=== PATIENT | male | born 1965 | race Caucasian/White ===

== ENCOUNTER 2016-07-08 11:14 | Emergency (ER) | payer BC ==
[2016-07-08] MEDS ORDERED: SODIUM CHLORIDE 0.9% 1,000 ML IV STA ×2 (14:09)
[2016-07-08] MEDS ORDERED: MECLIZINE 12.5 MG TAB PO STA (14:17)
--- NOTE | 2016-07-08 14:48 | ED ---
General Adult HPI - General Chief complaint: Dizziness Stated complaint: Dizzy,back,neck pain Time Seen by Provider: 07/08/16 14:02 Source: patient, RN notes reviewed Mode of arrival: wheelchair Limitations: no limitations - History of Present Illness Initial comments: Patient 50-year-old male who presents emergency room today with a chief complaint of feeling dizzy and lightheaded. Patient does describe the dizziness as room spinning. Patient does admit that he had similar symptoms several years ago. Patient states she does not take her medications at home. States symptoms started this morning when he was at work. He states it started approximately 8 AM. 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 States that when he sits down symptoms do improve when he gets up symptoms increase. Patient denies any recent fever, chills, shortness of breath, chest pain, back pain, abdominal pain , nausea or vomiting, numbness or tingling, dysuria or hematuria, constipation or diarrhea, headaches or visual changes, or any other complaints. - Related Data Home Medications Medication Instructions Recorded Confirmed No Known Home Medications [No 07/08/16 07/08/16 Known Home Medications] Allergies Allergy/AdvReac Type Severity Reaction Status Date / Time Penicillins Allergy Rash/Hives Verified 07/08/16 13:01 Review of Systems ROS Statement: Those systems with pertinent positive or pertinent negative responses have been documented in the HPI. ROS Other: All systems not noted in ROS Statement are negative. Past Medical History Past Medical History: No Reported History History of Any Multi-Drug Resistant Organisms: None Reported Past Surgical History: No Surgical Hx Reported Past Psychological History: No Psychological Hx Reported Smoking Status: Current every day smoker Past Alcohol Use History: None Reported Past Drug Use History: None Reported General Exam - General Exam Comments Initial Comments: General: The patient is awake and alert, in no distress, and does not appear acutely ill. Eye: Pupils are equal, round and reactive to light, extra-ocular movements are intact. No nystagmus. There is normal conjunctiva bilaterally. No signs of icterus. Ears, nose, mouth and throat: There are moist mucous membranes and no oral lesions. Neck: The neck is supple, there is no tenderness or JVD. Cardiovascular: There is a regular rate and rhythm. No murmur, rub or gallop is appreciated. Respiratory: Lungs are clear to auscultation, respirations are non-labored, breath sounds are equal. No wheezes, stridor, rales, or rhonchi. Gastrointestinal: Soft, non-distended, non-tender abdomen without masses or organomegaly noted. There is no rebound or guarding present. No CVA tenderness. Bowel sounds are unremarkable. Musculoskeletal: Normal ROM, no tenderness. Strength 5/5. Sensation intact. Pulses equal bilaterally 2+. Neurological: A&O x 3. CN II-XII intact, There are no obvious motor or sensory deficits. Coordination appears grossly intact. Speech is normal. Skin: Skin is warm and dry and no rashes or lesions are noted. Psychiatric: Cooperative, appropriate mood & affect, normal judgment. Limitations: no limitations Course Vital Signs 07/08/16 11:37 Temperature 97.8 F Pulse Rate 64 Respiratory 20 Rate Blood Pressure 134/85 O2 Sat by Pulse 96 Oximetry EKG Findings - EKG Comments: EKG Findings:: EKG performed at 1437: Soft. Cardiovascular tachycardic 5 beats per minute. MN interval 138. QRS 92. QT/QTc 422/403. no acute ST changes. Medical Decision Making - Medical Decision Making Patient reexamined at this time shows no signs of distress. Patient does admit that his feeling better here in the emergency room. Patient's labs been reviewed and are unremarkable. EKG shows normal sinus rhythm. Patient feeling better after fluids seen here in the emergency room. Does admit to an episode of dizziness or lightheadedness. Describes it as room spinning. Patient states symptoms have resolved at this time. Patient will be discharged home with prescription for meclizine to continue. Otherwise follow-up family doctor over the next 2 days. Advised return to emergency room if any symptoms increase worsen or for any other concerns. - Lab Data Result diagrams: 07/08/16 14:15 07/08/16 14:15 Lab Results 07/08/16 07/08/16 07/08/16 Range/Units 14:15 14:15 14:15 WBC 8.9 (3.8-10.6) k/uL RBC 5.26 (4.30-5.90) m/uL Hgb 16.3 (13.0-17.5) gm/dL Hct 48.7 (39.0-53.0) % MCV 92.6 (80.0-100.0) fL MCH 30.9 (25.0-35.0) pg MCHC 33.4 (31.0-37.0) g/dL RDW 12.9 (11.5-15.5) % Plt Count 219 (150-450) k/uL Neutrophils % 83 % Lymphocytes % 11 % Monocytes % 5 % Eosinophils % 0 % Basophils % 1 % Neutrophils # 7.4 (1.3-7.7) k/uL Lymphocytes # 1.0 (1.0-4.8) k/uL Monocytes # 0.4 (0-1.0) k/uL Eosinophils # 0.0 (0-0.7) k/uL Basophils # 0.1 (0-0.2) k/uL PT (9.0-12.0) sec INR (<1.1) APTT (22.0-30.0) sec Sodium 142 (137-145) mmol/L Potassium 4.7 (3.5-5.1) mmol/L Chloride 104 (98-107) mmol/L Carbon Dioxide 27 (22-30) mmol/L Anion Gap 11 mmol/L BUN 15 (9-20) mg/dL Creatinine 0.71 (0.66-1.25) mg/dL Est GFR (MDRD) Af Amer >60 (>60 ml/min/1.73 sqM) Est GFR (MDRD) Non-Af >60 (>60 ml/min/1.73 sqM) Glucose 110 H (74-99) mg/dL Calcium 9.9 (8.4-10.2) mg/dL Magnesium 2.4 H (1.6-2.3) mg/dL Total Bilirubin 0.8 (0.2-1.3) mg/dL AST 19 (17-59) U/L ALT 26 (21-72) U/L Alkaline Phosphatase 82 (38-126) U/L Total Creatine Kinase 118 (55-170) U/L CK-MB (CK-2) 1.7 (0.0-2.4) ng/mL CK-MB (CK-2) Rel Index 1.4 Troponin I <0.012 (0.000-0.034) ng/mL Total Protein 7.4 (6.3-8.2) g/dL Albumin 4.5 (3.5-5.0) g/dL 07/08/16 Range/Units 14:15 WBC (3.8-10.6) k/uL RBC (4.30-5.90) m/uL Hgb (13.0-17.5) gm/dL Hct (39.0-53.0) % MCV (80.0-100.0) fL MCH (25.0-35.0) pg MCHC (31.0-37.0) g/dL RDW (11.5-15.5) % Plt Count (150-450) k/uL Neutrophils % % Lymphocytes % % Monocytes % % Eosinophils % % Basophils % % Neutrophils # (1.3-7.7) k/uL Lymphocytes # (1.0-4.8) k/uL Monocytes # (0-1.0) k/uL Eosinophils # (0-0.7) k/uL Basophils # (0-0.2) k/uL PT 10.5 (9.0-12.0) sec INR 1.0 (<1.1) APTT 23.7 (22.0-30.0) sec Sodium (137-145) mmol/L Potassium (3.5-5.1) mmol/L Chloride (98-107) mmol/L Carbon Dioxide (22-30) mmol/L Anion Gap mmol/L BUN (9-20) mg/dL Creatinine (0.66-1.25) mg/dL Est GFR (MDRD) Af Amer (>60 ml/min/1.73 sqM) Est GFR (MDRD) Non-Af (>60 ml/min/1.73 sqM) Glucose (74-99) mg/dL Calcium (8.4-10.2) mg/dL Magnesium (1.6-2.3) mg/dL Total Bilirubin (0.2-1.3) mg/dL AST (17-59) U/L ALT (21-72) U/L Alkaline Phosphatase (38-126) U/L Total Creatine Kinase (55-170) U/L CK-MB (CK-2) (0.0-2.4) ng/mL CK-MB (CK-2) Rel Index Troponin I (0.000-0.034) ng/mL Total Protein (6.3-8.2) g/dL Albumin (3.5-5.0) g/dL Disposition Clinical Impression: Dizziness Disposition: HOME SELF-CARE Condition: Good Instructions: Vertigo (ED) Additional Instructions: Please use medication as discussed. Please follow-up with family doctor in the next 2 days. Please return to emergency room if the symptoms increase or worsen or for any other concerns. Time of Disposition: 15:45
[2016-07-08 14:49] LABS: Basophils # (A) 0.1 k/uL (0-0.2); Basophils % (A) 1 %; CH 32.3; Eosinophils % (A) 0 %; HCT 48.7 % (39.0-53.0); HDW 2.49; HGB 16.3 gm/dL (13.0-17.5); Luc # (Auto) 0.08; Luc % (Auto) 1; Lymphocytes % (A) 11 %; MCH 30.9 pg (25.0-35.0); MCHC 33.4 g/dL (31.0-37.0); MCV 92.6 fL (80.0-100.0); Mean Platelet Volume 6.5; Monocytes # (A) 0.4 k/uL (0-1.0); Monocytes % (A) 5 %; Neutrophils # (A) 7.4 k/uL (1.3-7.7); Neutrophils % (A) 83 %; RBC 5.26 m/uL (4.30-5.90); RDW 12.9 % (11.5-15.5); WBC 8.9 k/uL (3.8-10.6); WBC (Perox) 8.49
[2016-07-08 14:56] LABS: ALT 26 U/L (21-72); AST 19 U/L (17-59); Alkaline Phosphatase 82 U/L (38-126); Anion Gap 11 mmol/L; Blood Urea Nitrogen 15 mg/dL (9-20); Calcium 9.9 mg/dL (8.4-10.2); Carbon Dioxide 27 mmol/L (22-30); Chloride 104 mmol/L (98-107); Glucose 110 mg/dL (74-99); Magnesium 2.4 mg/dL (1.6-2.3); Non-African American GFR(MDRD) >60 (>60 ml/min/1.73 sqM); Partial Thromboplastin Time 23.7 sec (22.0-30.0); Potassium 4.7 mmol/L (3.5-5.1); Prothrombin Time 10.5 sec (9.0-12.0); Sodium 142 mmol/L (137-145); Total Bilirubin 0.8 mg/dL (0.2-1.3); Total Protein 7.4 g/dL (6.3-8.2)
--- NOTE | 2016-07-08 15:00 | XR ---
EXAMINATION TYPE: XR chest 2V DATE OF EXAM: 07/08/2016 2:55 PM COMPARISON: Chest x-ray September 07, 2014. HISTORY: Chest pain per order. Lightheadedness and dizziness per patient. TECHNIQUE: Frontal and lateral views of the chest are obtained. FINDINGS: There is chronic parenchymal change with left basilar lateral linear atelectasis. There i s no suspicious focal airspace opacity, pleural effusion, or pneumothorax seen The cardiac silhouette size remains within normal limits. The osseous structures are intact. IMPRESSION: Chronic parenchymal change with new left basilar linear atelectasis.
[2016-07-08 15:11] LABS: Creatine Kinase 118 U/L (55-170)
[2016-07-08 15:25] LABS: Creatine Kinase MB 1.7 ng/mL (0.0-2.4); Troponin I <0.012 ng/mL (0.000-0.034)
[2016-07-08 16:01] VITALS: BP 150/92; PULSE 53; RESP 18; TEMP 97.7
== END 2016-07-08 16:00 | disposition home or self-care (01) ==
LOC: EC 11:14 → MERGE 11:14 → EC 16:00
DX: R42 Dizziness and giddiness (principal); R07.9 Chest pain, unspecified; F17.200 Nicotine dependence, unspecified, uncomplicated; Z88.0 Allergy status to penicillin
CPT/HCPCS: 36415; 71020; 80053; 82550; 82553; 83735; 84484; 85025; 85610; 85730; 93005; 96360; 99284

== ENCOUNTER 2018-09-19 19:42 | Emergency (ER) | payer BC, MEDICAID ==
[2018-09-19 20:02] VITALS: BP 153/94; PULSE 68; RESP 18; TEMP 98.2
[2018-09-19 20:33] LABS: Appearance,Urine Clear (Clear); Bilirubin,Urine Negative (Negative); Blood,Urine Negative (Negative); Color,Urine Light Yellow; Glucose,Urine (UA) Negative (Negative); Ketones,Urine Negative (Negative); Leukocyte Esterase,Urine Negative (Negative); Nitrite,Urine Negative (Negative); Protein,Urine Negative (Negative); Specific Gravity,Urine 1.018 (1.001-1.035); Urobilinogen,Urine <2.0 mg/dL (<2.0)
[2018-09-19] MEDS ORDERED: CYCLOBENZAPRINE 10 MG TAB PO STA (21:29)
[2018-09-19] MEDS ORDERED: HYDROcodone/APAP 5-325MG 1 EACH TAB PO STA (21:29)
--- NOTE | 2018-09-19 21:33 | ED ---
Back Pain HPI - General Chief Complaint: Back Pain/Injury Stated Complaint: Lower Back/Left Side Pain Time Seen by Provider: 09/19/18 21:16 Source: patient, RN notes reviewed Limitations: no limitations - History of Present Illness Initial Comments: 52 -year-old male presents emergency Department with chief complaint of left low back pain. Patient states that he hasn't discomfort to work on Wednesday states it did get better and woke up feeling by this morning states that he went to work and states he had worsening symptoms and that side. Patient states that he feels so states that it feels difficult to move around. It is better at rest when he lays with his knees bent up. He denies any bowel bladder incontinence or retention no dysuria no hematuria. Denies any diarrhea constipation. Patient has had some issues with his back in the past but no prior surgeries. Patient did take a tramadol with no relief of his symptoms. - Related Data Home Medications Medication Instructions Recorded Confirmed Diclofenac Sodium [Voltaren] 50 mg PO BID-W/MEALS 09/19/18 09/19/18 Previous Rx's Medication Instructions Recorded Cyclobenzaprine [Flexeril] 10 mg PO TID PRN #15 tab 09/19/18 Ibuprofen [Motrin] 600 mg PO Q8HR PRN #30 tab 09/19/18 Allergies Allergy/AdvReac Type Severity Reaction Status Date / Time Penicillins Allergy Rash/Hives Verified 09/19/18 20:50 Review of Systems ROS Statement: Those systems with pertinent positive or pertinent negative responses have been documented in the HPI. ROS Other: All systems not noted in ROS Statement are negative. Past Medical History Past Medical History: No Reported History History of Any Multi-Drug Resistant Organisms: None Reported Past Surgical History: No Surgical Hx Reported Past Psychological History: No Psychological Hx Reported Smoking Status: Former smoker Past Alcohol Use History: Occasional Past Drug Use History: None Reported General Exam Limitations: no limitations General appearance: alert, in no apparent distress Head exam: Present: atraumatic, normocephalic, normal inspection Eye exam: Present: normal appearance, PERRL, EOMI. Absent: scleral icterus, conjunctival injection, periorbital swelling Neck exam: Present: normal inspection, full ROM. Absent: tenderness, meningismus, lymphadenopathy Respiratory exam: Present: normal lung sounds bilaterally. Absent: respiratory distress, wheezes, rales, rhonchi, stridor Cardiovascular Exam: Present: regular rate, normal rhythm, normal heart sounds. Absent: systolic murmur, diastolic murmur, rubs, gallop, clicks GI/Abdominal exam: Present: soft, normal bowel sounds. Absent: distended, tenderness, guarding, rebound, rigid Extremities exam: Present: other (Pain with right straight leg raise, lower extremity neurovascular intact equal strength equal color equal warmth) Back exam: Present: full ROM (Mild discomfort), tenderness (Moderate left lower), paraspinal tenderness. Absent: CVA tenderness (R), CVA tenderness (L), vertebral tenderness Neurological exam: Present: alert, oriented X3, CN II-XII intact, reflexes normal. Absent: motor sensory deficit Skin exam: Present: warm, dry, intact, normal color. Absent: rash Course Vital Signs 09/19/18 19:59 Temperature 98.2 F Pulse Rate 68 Respiratory 18 Rate Blood Pressure 153/94 O2 Sat by Pulse 96 Oximetry Medical Decision Making - Medical Decision Making 52-year-old male present emergency from chief complaint of low back pain. X- rays obtained negative urinalysis unremarkable. Patient is a lumbar strain. Patient will be discharged with anti-inflammatories, muscle relaxers. Patient will follow ECP discuss physical therapy and return parameters were discussed - Lab Data Lab Results 09/19/18 Range/Units 20:08 Urine Color Light Yellow Urine Appearance Clear (Clear) Urine pH 7.0 (5.0-8.0) Ur Specific [place] 1.018 (1.001-1.035) Urine Protein Negative (Negative) Urine Glucose (UA) Negative (Negative) Urine Ketones Negative (Negative) Urine Blood Negative (Negative) Urine Nitrite Negative (Negative) Urine Bilirubin Negative (Negative) Urine Urobilinogen <2.0 (<2.0) mg/dL Ur Leukocyte Esterase Negative (Negative) Disposition Clinical Impression: Strain of lumbar region Disposition: HOME SELF-CARE Condition: Stable Instructions (If sedation given, give patient instructions): Acute Low Back Pain (ED) Additional Instructions: Please return to the Emergency Department if symptoms worsen or any other concerns. Prescriptions: Cyclobenzaprine [Flexeril] 10 mg PO TID PRN #15 tab PRN Reason: Muscle Spasm Ibuprofen [Motrin] 600 mg PO Q8HR PRN #30 tab PRN Reason: Pain Is patient prescribed a controlled substance at d/c from ED?: No Referrals: Sofia Casey DO [Primary Care Provider] - 1-2 days Time of Disposition: 22:36
--- NOTE | 2018-09-19 22:25 | XR ---
PROCEDURE: XR lumbosacral spine - 5V DATE AND TIME: 09/19/2018 9:51 PM CLINICAL INDICATION: PHH; Pain TECHNIQUE: Department protocol COMPARISON: None FINDINGS: There is no fracture or malalignment. Mild and moderate multilevel spondylosis changes are noted, predominantly involving the facet joints. The soft tissues are unremarkable. IMPRESSION: NO ACUTE PROCESS.
== END 2018-09-19 22:48 | disposition home or self-care (01) ==
LOC: EC 19:42
DX: S39.012A Strain of muscle, fascia and tendon of lower back, initial encounter (principal); Z87.891 Personal history of nicotine dependence; Z88.0 Allergy status to penicillin
CPT/HCPCS: 72110; 81003; 99283

== ENCOUNTER → 2018-09-24 | Outpatient (CLI) | payer MEDICAID ==
--- NOTE | 2018-09-24 09:33 | MR ---
MR lumbar spine wo con LBP, LLE radic, occasionally RLE radic x 3 yrs Multiplanar, multiecho imaging of the lumbar spine was obtained without contrast on a 3 Trang magnet. REFERENCE:None. FINDINGS: Paraspinal soft tissues are normal. Vertebral body height and alignment are maintained. Cord signal is maintained. The conus ends normall y at the level of the inferior endplate of L1. At T12-L1, the intervertebral foramina are widely maintained. There is no significant compressive dis copathy. There is mild capsulitis in the right facet. At L1-2, the intervertebral foramina are widely maintained. There is no significant compressive disco shakira. There is mild hypertrophic change and capsulitis within the facets. At L2-3, the intervertebral foramina are well maintained. There is a broad-based disc displacement. T his hypertrophic change and capsulitis within the facets. There is mild trefoiling of the thecal sac. At L3-4, there is a left paracentral disc protrusion causing some narrowing of the left intervertebra l foramen. This is deforming the thecal sac and impinging upon the traversing L4 nerve root on the le ft. There is mild hypertrophic change and capsulitis within the facets. At L4-5, there is disc space loss and disc desiccation. Intervertebral foramina appear mildly narrowe d bilaterally. There is a broad-based disc displacement. This hypertrophic changes within the facets. There is mild to moderate central canal stenosis. At L5-S1,the intervertebral foramina are well maintained. There is a central disc protrusion without definite neural compression. There is hypertrophic change and capsulitis within the facets. IMPRESSION: 1. DIFFUSE DEGENERATIVE DISC DISEASE AND FACET ARTHROPATHY. 2. LEFT PARACENTRAL DISC PROTRUSION, L3-4 PARTIALLY NARROWING THE LEFT INTERVERTEBRAL FORAMINA AT THI S LEVEL. 3. CENTRAL DISC PROTRUSION, L5-S1 WITHOUT DEFINITE NEURAL COMPRESSION.
== END | disposition home or self-care (01) ==
LOC: RADMRIMAIN 08:11
PROVIDERS: ATTEND Family Medicine
DX: M99.73 Connective tissue and disc stenosis of intervertebral foramina of lumbar region (principal); M51.27 Other intervertebral disc displacement, lumbosacral region; M51.36 Other intervertebral disc degeneration, lumbar region; M46.96 Unspecified inflammatory spondylopathy, lumbar region
CPT/HCPCS: 72148

== ENCOUNTER 2019-02-06 08:50 | Day surgery (SDC) | payer MEDICAID ==
[2019-02-06 09:05] VITALS: TEMP 97
[2019-02-06] MEDS ORDERED: LACTATED RINGERS 1,000 ML IV ONE (09:08)
[2019-02-06] MEDS ORDERED: PROPOFOL 10 MG/ML 20 ML VIAL IV ONE (10:02)
--- NOTE | 2019-02-06 10:32 | P.PCN ---
Date of Procedure: 02/06/19 Description of Procedure: BRIEF HISTORY: Patient is a 53-year-old pleasant male scheduled for an elective colonoscopy as a part of screening for malignant neoplasm of the colon. No prior colonoscopies reported. No family history of colon cancer. No change in bowel habits, abdominal pain or blood per rectum reported. PROCEDURE PERFORMED: Colonoscopy with polypectomy. PREOPERATIVE DIAGNOSIS: Screening for malignant neoplasm colon, no prior colonoscopies reported. ESTIMATED BLOOD LOSS: Minimal. IV sedation per Anesthesia. PROCEDURE: After informed consent was obtained, the patient, was brought into the endoscopy unit. IV sedation was administered by Anesthesia under continuous monitoring. Digital rectal examination was normal. Initially the Olympus CF-190 flexible video colonoscope was then inserted in the rectum, gradually advanced into the cecum without any difficulty. The terminal ileum was intubated and appeared normal. Careful examination was performed as the scope was gradually being withdrawn. Ileocecal valve and the appendiceal orifice were visualized and appe ared normal. Prep was excellent. Mucosa of the cecum, ascending colon, transverse colon, descending colon, sigmoid colon, and rectum appeared normal. Diminutive 3 mm sigmoid polyp removed with cold forcep polypectomy. 2 diminutive rectal polyps measuring 1 mm and 2 mm in size removed with cold forcep polypectomy. Retroflexion was performed in the rectum and no lesions were seen. The patient tolerated the procedure well. IMPRESSION: 3 diminutive polyps 2 removed from the rectum and one from the sigmoid colon with cold forcep polypectomy. Otherwise normal appearing colon and cecum, with normal-appearing terminal ileum. RECOMMENDATIONS: Findings of this examination were discussed with the patient in his mother and [id number]. Okay to resume diet and medications. Anticipate repeat colonoscopy in 5 years pending pathology from polypectomies.
[2019-02-06 10:33] VITALS: RESP 16
[2019-02-06 10:53] VITALS: BP 129/81; PULSE 60
== END 2019-02-06 11:02 | disposition home or self-care (01) ==
LOC: ORWHC2ENDO 08:50
PROVIDERS: ATTEND Internal Medicine
DX: Z12.11 Encounter for screening for malignant neoplasm of colon (principal); D12.5 Benign neoplasm of sigmoid colon; K62.1 Rectal polyp; K08.89 Other specified disorders of teeth and supporting structures; Z87.891 Personal history of nicotine dependence; Z88.0 Allergy status to penicillin; Z79.1 Long term (current) use of non-steroidal anti-inflammatories (NSAID); Z79.899 Other long term (current) drug therapy
CPT/HCPCS: 88305; 45380; J2704

== ENCOUNTER → 2022-10-23 | Outpatient (CLI) | payer MEDICAID ==
--- NOTE | 2022-10-23 09:13 | US ---
EXAMINATION TYPE: US carotid duplex BILAT DATE OF EXAM: 10/23/2022 COMPARISON: NONE CLINICAL INDICATION: Male, 56 years old with history of R42 DIZZINESS AND GIDDINESS; dizziness TECHNIQUE: Carotid duplex ultrasound examination. Indirect Doppler criteria was utilized. 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 Criteria for Assigning % of Stenosis / Diameter reduction (Estimation based on the indirect measurements of the internal carotid artery velocities (ICA PSV). 1. Normal (no stenosis)=ICA PSV < 125 cm/s: ratio < 2.0: ICA EDV<40 cm/s. 2. Less than 50% stenosis=ICA PSV < 125 cm/s: ratio < 2.0: ICA EDV<40 cm/s. 3. 50 to 69% stenosis=ICA PSV of 125 to 230 cm/s: ration 2.0 ? 4.0: ICA EDV 40-100 cm/s. 4. Greater than 70% stenosis to near occlusion= ICA PSV > 230 cm/s: ratio > 4.0: ICA EDV > 100 cm/s. 5. Near occlusion= ICA PSV velocities may be low or undetectable: variable ratio and ICA EDV. 6. Total occlusion=unable to detect flow.
--- NOTE | 2022-10-23 09:31 | CA ---
Transthoracic Echo Report Name: Yanick Rojas Age: 56 Gender: M : 1965 Exam Date: 10/23/2022 08:05 Exam Location: [facility] Ht (in): 67 Wt (lb): 180 Ordering Physician: Sofia Casey DO Attending/Referring Phys: Cindy Gillis [facility] Lever Tender Madison Pollock RDCS Procedure CPT: Indications: R42 Cardiac Hx: Technical Quality: Good Contrast 1: Total Dose (mL): Contrast 2: Total Dose (mL): MEASUREMENTS (Male / Female) Normal Values 2D ECHO LV Diastolic Diameter PLAX 4.5 cm 4.2 - 5.9 / 3.9 - 5.3 cm LV Systolic Diameter PLAX 3.1 cm IVS Diastolic Thickness 1.0 cm 0.6 - 1.0 / 0.6 - 0.9 cm LVPW Diastolic Thickness 1.0 cm 0.6 - 1.0 / 0.6 - 0.9 cm LV Relative Wall Thickness 0.4 RV Internal Dim ED PLAX 3.3 cm LA Systolic Diameter LX 4.5 cm 3.0 - 4.0 / 2.7 - 3.8 cm LV Diastolic Volume MOD 4C 110.4 cm??? LV Systolic Volume MOD 4C 43.9 cm??? LV Ejection Fraction MOD 4C 60.2 % LV Cardiac Index MOD 4C 1876.9 cm???/min???m??? LV Diastolic Length 4C 8.4 cm LV Systolic Length 4C 6.8 cm LV Diastolic Volume MOD 2C 99.6 cm??? LV Systolic Volume MOD 2C 38.5 cm??? LV Ejection Fraction MOD 2C 61.4 % LV Cardiac Index MOD 2C 1724.7 cm???/min???m??? LV Diastolic Length 2C 8.2 cm LV Systolic Length 2C 6.6 cm M-MODE Aortic Root Diameter MM 2.9 cm AV Cusp Separation MM 2.1 cm DOPPLER AV Peak Velocity 147.4 cm/s AV Peak Gradient 8.7 mmHg Mitral E Point Velocity 61.3 cm/s Mitral A Point Velocity 72.6 cm/s Mitral E to A Ratio 0.8 MV Deceleration Time 281.9 ms MV E' Velocity 7.5 cm/s Mitral E to MV E' Ratio 8.2 TR Peak Velocity 220.3 cm/s TR Peak Gradient 19.4 mmHg Right Ventricular Systolic Press 29.4 mmHg FINDINGS Left Ventricle Left ventricular ejection fraction is estimated at 60-65 %. Left ventricular cavity size normal. Left ventricular wall thickness normal. Normal left ventricular wall motion. Right Ventricle Mild right ventricular dilatation. Right ventricular systolic pressure within normal limits. Right ventricular systolic pressure estimated at 29 mm hg. Right Atrium Normal right atrial size. Left Atrium Normal left atrial size. Mitral Valve Structurally normal mitral valve. Mild mitral regurgitation. Aortic Valve Trileaflet aortic valve. No aortic valve stenosis or regurgitation. Tricuspid Valve Structurally normal tricuspid valve. Mild tricuspid regurgitation. Pulmonic Valve Structurally normal pulmonic valve. Trace pulmonic regurgitation. Pericardium Normal pericardium. No pericardial effusion. Aorta Normal size aortic root and proximal ascending aorta. CONCLUSIONS 1. Normal left ventricular size and systolic function. 2. Mild mitral and tricuspid regurgitation Previewed by: Dr. Haider Reilly MD (Electronically Signed) Final Date: 23 October 2022 09:30
== END | disposition home or self-care (01) ==
LOC: RADECHMAIN 07:43
PROVIDERS: ATTEND Family Medicine
DX: I08.1 Rheumatic disorders of both mitral and tricuspid valves (principal); R42 Dizziness and giddiness
CPT/HCPCS: 93306; 93880

== ENCOUNTER 2023-12-26 11:32 | Observation (INO) | payer MEDICAID ==
[2023-12-26] MEDS: NITROGLYCERIN SL TABS 0.4 MG TAB SUBLINGUAL STA (11:56)
[2023-12-26] MEDS: SODIUM CHLORIDE 0.9% 1,000 ML IV STA ×2 (11:57→13:22)
[2023-12-26] MEDS: PANTOPRAZOLE 40 MG/10 ML VIAL IVP STA (11:59)
[2023-12-26] MEDS: ONDANSETRON 4 MG/2 ML VIAL IVP STA (11:59)
[2023-12-26 12:04] LABS: Basophils % (A) 0 %; Eosinophils % (A) 0 %; HCT 45.8 % (39.0-53.0); HGB 15.3 gm/dL (13.0-17.5); Lymphocytes # (A) 0.9 k/uL (1.0-4.8); Lymphocytes % (A) 8 %; MCH 31.4 pg (25.0-35.0); MCHC 33.4 g/dL (31.0-37.0); MCV 94.2 fL (80.0-100.0); Mean Platelet Volume 7.2; Monocytes # (A) 0.3 k/uL (0-1.0); Monocytes % (A) 3 %; Neutrophils % (A) 89 %; Platelet Count 196 k/uL (150-450); RBC 4.86 m/uL (4.30-5.90); RDW 12.1 % (11.5-15.5); WBC 11.3 k/uL (3.8-10.6)
[2023-12-26 12:16] LABS: ALT 15 U/L (4-49); AST 17 U/L (17-59); African American GFR (CKD) >90 (>60 ml/min/1.73 sqM); Albumin 4.2 g/dL (3.5-5.0); Alkaline Phosphatase 96 U/L (38-126); Anion Gap 9 mmol/L; Blood Urea Nitrogen 20 mg/dL (9-20); Calcium 9.3 mg/dL (8.4-10.2); Carbon Dioxide 20 mmol/L (22-30); Chloride 109 mmol/L (98-107); Glucose 154 mg/dL (74-99); Lipase 87 U/L (23-300); Magnesium 1.8 mg/dL (1.6-2.3); Non-African American GFR(CKD) >90 (>60 ml/min/1.73 sqM); Partial Thromboplastin Time 22.6 sec (22.0-30.0); Potassium 4.1 mmol/L (3.5-5.1); Prothrombin Time 10.6 sec (10.0-12.5); Sodium 138 mmol/L (137-145); Total Bilirubin 0.7 mg/dL (0.2-1.3); Total Protein 6.4 g/dL (6.3-8.2)
[2023-12-26 12:24] LABS: NT-Pro-B-Type Natriuretic Pept 136 pg/mL
[2023-12-26] MEDS: MORPHINE SULFATE 4 MG/ML SYRINGE IVP STA ×2 (12:42→13:22)
--- NOTE | 2023-12-26 12:42 | XR ---
EXAMINATION TYPE: XR chest 1V portable DATE OF EXAM: 12/26/2023 COMPARISON: 11/25/2022 HISTORY: Chest pain and shortness of breath TECHNIQUE: Single frontal view of the chest is obtained. FINDINGS: There is no focal air space opacity, pleural effusion, or pneumothorax seen. The cardiac silhouette size is within normal limits. The osseous structures are intact. IMPRESSION: No acute process. [facility], Workstation: [id number] 12/26/2023 12:40 PM
--- NOTE | 2023-12-26 12:54 | CT ---
CTA chest, abdomen and pelvis HISTORY: Pain radiating to back, evaluate for aortic injury. COMPARISON: None. TECHNIQUE: Multiple axial images were obtained through the chest, abdomen and pelvis following the un eventful administration of nonionic IV contrast. Exam was performed according to the department scott col for CTA. FINDINGS: CTA CHEST: The thoracic aorta including the aortic root, arch and descending thoracic aorta is normal in size wi thout aneurysm, dissection or ulcer formation.. There is no filling defect within the pulmonary arter ial circulation to suggest pulmonary embolism. CTA abdomen and pelvis: The caliber of the abdominal aorta is normal without aneurysm, dissection or ulceration. The origins of the mesenteric arteries and renal arteries are widely patent. There is no retroperiton eal adenopathy or hemorrhage. Non-CTA findings: Thorax: There are miliary nodules scattered throughout the lung parenchyma which could secondary to occupatio nal exposure/pneumoconiosis, silicosis, TB, sarcoidosis or neoplasm. There is no airspace consolidati on. There is no pleural effusion or pneumothorax. There is no mediastinal or axillary adenopathy. There is a mildly enlarged 14 to 15 mm right hilar ly mph node. Abdomen and pelvis: The gallbladder is normal. There is no focal mass or organomegaly involving the solid visceral organs of the upper abdomen. There is no solid renal mass or hydronephrosis. The bowel loops are normal in caliber and there is no dilatation or obstruction. There is no free int raperitoneal air or fluid. There is no pelvic mass, free fluid, abscess or adenopathy. The osseous structures are intact. IMPRESSION: 1. No abnormality of the thoracic or abdominal aorta. 2. Miliary nodules scattered throughout the lungs, see above [facility], , 12/26/2023 12:52 PM
[2023-12-26] MEDS ORDERED: NALOXONE 0.4 MG/ML 1 ML VIAL IV PRN (13:55)
[2023-12-26] MEDS ORDERED: MORPHINE SULFATE 4 MG/ML SYRINGE IV PRN (13:55)
--- NOTE | 2023-12-26 14:03 | ED ---
General Adult HPI - General Chief complaint: Chest Pain Stated complaint: Chest pain,CONNOR Time Seen by Provider: 12/26/23 11:48 Source: patient, RN notes reviewed, old records reviewed Mode of arrival: wheelchair Limitations: no limitations - History of Present Illness Initial comments: Patient is a 57-year-old male who presents emergency department complaining of chest pain. Points to his lower sternum and epigastric region when he describes it as chest pain. States it started this morning after he drank some water. Has a history of experiencing this in the past and had normal workup at that time including stress test. Has been following with Dr. Marte for possible gallbladder pathology. No cardiac history for the patient. States the pain is a sharp achy and radiates through to his back. Denies any shortness of breath. Denies fevers or chills or cough. Has no urinary complaints. Denies diarrhea. No sick contacts. Ate a fatty meal yesterday evening. Presents for further evaluation at this time. Has felt nauseous but no active emesis. - Related Data Home Medications Medication Instructions Recorded Confirmed Ascorbic Acid [Vitamin C] 500 mg PO DAILY 11/25/22 12/26/23 Zinc Gluconate [Zinc] 50 mg PO DAILY 11/25/22 12/26/23 Previous Rx's Medication Instructions Recorded Pantoprazole Sodium [Protonix] 40 mg PO DAILY #30 tab 11/26/22 Allergies Allergy/AdvReac Type Severity Reaction Status Date / Time Penicillins Allergy Rash/Hives, Verified 12/26/23 11:59 nausea/vomiting Review of Systems ROS Statement: Those systems with pertinent positive or pertinent negative responses have been documented in the HPI. Review of Systems: CONST: Denies fever EYES: Denies blurry vision ENT: Denies nasal congestion C/V: Endorses chest pain RESP: Denies shortness of breath GI: Endorses abdominal pain : Denies dysuria SKIN: Denies rash. MSK: Denies joint pain. NEURO: Denies headache ROS Other: All systems not noted in ROS Statement are negative. Past Medical History Past Medical History: No Reported History History of Any Multi-Drug Resistant Organisms: None Reported Past Surgical History: No Surgical Hx Reported Past Anesthesia/Blood Transfusion Reactions: No Reported Reaction Past Psychological History: No Psychological Hx Reported Smoking Status: Current every day smoker Past Alcohol Use History: Occasional Past Drug Use History: Marijuana General Exam - General Exam Comments Initial Comments: General: Appears in moderate distress. HEAD: Normal with no signs of head trauma. EYES: PERRLA, EOMI, conjunctiva normal, no discharge. ENT: Hearing grossly intact, normal oropharynx. RESPIRATORY: Clear breath sounds bilaterally. No wheezes, rales, or rhonchi. C/V: Regular rate and rhythm. S1 and S2 auscultated, no edema, peripheral pulses 2+ and intact throughout. Some mild reproducible chest pain to palpation of the lower sternum. ABD: Abdomen soft, nondistended. Tender palpation in the epigastric region as well as some radiation up into the lower sternum of the chest. No guarding or rebound tenderness. No peritoneal signs. EXT: Normal range of motion, no obvious deformity SKIN: No rashes or lesions observed on exposed skin. NEURO: Alert and oriented x 4 Limitations: no limitations Course Vital Signs 12/26/23 12/26/23 12/26/23 11:33 11:50 11:56 Temperature 97.6 F Pulse Rate 47 L 49 L 50 L Respiratory 16 20 20 Rate Blood Pressure 167/81 156/90 131/91 O2 Sat by Pulse 99 99 99 Oximetry 12/26/23 12/26/23 12:01 13:37 Temperature Pulse Rate 48 L 44 L Respiratory 16 14 Rate Blood Pressure 129/86 151/87 O2 Sat by Pulse 99 97 Oximetry Medical Decision Making - Medical Decision Making Was pt. sent in by a medical professional or institution (RHONDA Saravia, URGENT CARE NURSE PRACTITIONER, urgent care, hospital, or shelter...) When possible be specific @ -No Did you speak to anyone other than the patient for history (EMS, parent, family, police, friend...)? What history was obtained from this source @ -No Did you review nursing and triage notes (agree or disagree)? Why? @ -I reviewed and agree with nursing and triage notes Were old charts reviewed (outside hosp., previous admission, EMS record, old EKG, old radiological studies, urgent care reports/EKG's, shelter records)? Report findings @ -Reviewed charts from October 2023 when patient presented with similar complaints. Stress test at that time was normal as well as workup otherwise. Patient has been bradycardic dating back to EKGs from June 2016. Differential Diagnosis (chest pain, altered mental status, abdominal pain women, abdominal pain men, vaginal bleeding, weakness, fever, dyspnea, syncope, headache, dizziness, GI bleed, back pain, seizure, CVA, palpatations, mental health, musculoskeletal)? @ -Differential Chest Pain: Stable Angina, Unstable Angina, STEMI, NSTEMI Aortic Dissection, Pneumothorax, Musculoskeletal, Esophageal Spasm GERD, Cholecystitis, Pancreatitis, Zoster, this is not meant to be an all-inclusive list. EKG interpreted by me (3pts min.). @ -As above X-rays interpreted by me (1pt min.). @ -X-ray reveals no obvious acute cardiopulmonary process CT interpreted by me (1pt min.). @ -CT angiogram of the aorta revealed no evidence of aortic injury. No obvious acute thoracic or intra-abdominal process. Patient does have pulmonary nodules seen on prior imaging. U/S interpreted by me (1pt. min.). @ -Ultrasound gallbladder within acceptable limits. No evidence of acute cholecystitis. What testing was considered but not performed or refused? (CT, X-rays, U/S, labs)? Why? @ -None What meds were considered but not given or refused? Why? @ -None Did you discuss the management of the patient with other professionals (professionals i.e. , PA, URGENT CARE NURSE PRACTITIONER, lab, RT, psych nurse, rn social services, automatic transmission mechanic, teacher, protective officer, child welfare caseworker)? Give summary @ -Discussed with admitting provider, Dr. Díaz who accepted the admission. Was smoking cessation discussed for >3mins.? @ -No Was critical care preformed (if so, how long)? @ -No Were there social determinants of health that impacted care today? How? (Homelessness, low income, unemployed, alcoholism, drug addiction, transportation, low edu. Level, literacy, decrease access to med. care, usp, rehab)? @ -No Was there de-escalation of care discussed even if they declined (Discuss DNR or withdrawal of care, Hospice)? DNR status @ -No What co-morbidities impacted this encounter? (DM, HTN, Smoking, COPD, CAD, Cancer, CVA, ARF, Chemo, Hep., AIDS, mental health diagnosis, sleep apnea, morbid obesity)? @ -None Was patient admitted / discharged? Hospital course, mention meds given and route, prescriptions, significant lab abnormalities, going to OR and other pertinent info. @ -Based on patient's presentation and physical exam, patient presents emergency department complaining of what he describes as chest pain. His is located over the lower sternum but also involving the epigastric region. Similar to complaint a little over a month ago when he presented with normal workup at that time. Radiation to the back today. We will obtain CT angiogram to evaluate the aorta as well as cardiac workup. Patient was in agreement this plan. Vital signs are within acceptable limits other than sinus bradycardia which is chronic for the patient dating back to old EKGs. Patient given nitroglycerin tablets. Patient also given IV fluids, Zofran, Protonix. Nitro did nothing for the pain and therefore he was given IV morphine. EKG shows sinus bradycardia. Repeat EKG shows sinus bradycardia. This is an old finding for the patient. Patient's laboratory studies remarkable for mild leukocytosis of 11.3. Troponin is undetectable. Remainder the labs unremarkable. CT angiogram negative for aortic injury. Pulmonary nodule seen which is chronic. Gallbladder ultrasound reveals no evidence of gallbladder pathology. Chest x-ray unremarkable. On reevaluation, patient still having pain. Given aspirin at this time. Patient given a dose of Dilaudid. Discussed workup with him. He will be admitted. He was in agreement this plan. Cardiology consulted. I spoke with the admitting provider, Dr. Díaz who accepted the admission. Undiagnosed new problem with uncertain prognosis? @ -No Drug Therapy requiring intensive monitoring for toxicity (Heparin, Nitro, Insulin, Cardizem)? @ -No Were any procedures done? @ -No Diagnosis/symptom? @ -chest pain, nausea and vomiting Acute, or Chronic, or Acute on Chronic? @ -Acute Uncomplicated (without systemic symptoms) or Complicated (systemic symptoms)? @ -Complicated Side effects of treatment? @ -No Exacerbation, Progression, or Severe Exacerbation? @ -No Poses a threat to life or bodily function? How? (Chest pain, [place], [place], pneumonia, PE, COPD, DKA, ARF, appy, cholecystitis, CVA, Diverticulitis, Homicidal, Suicidal, threat to staff... and all critical care pts) @ -Potentially, yes - Lab Data Result diagrams: 12/26/23 11:53 12/26/23 11:53 Lab Results 12/26/23 12/26/23 12/26/23 Range/Units 11:53 11:53 11:53 WBC 11.3 H (3.8-10.6) k/uL RBC 4.86 (4.30-5.90) m/uL Hgb 15.3 (13.0-17.5) gm/dL Hct 45.8 (39.0-53.0) % MCV 94.2 (80.0-100.0) fL MCH 31.4 (25.0-35.0) pg MCHC 33.4 (31.0-37.0) g/dL RDW 12.1 (11.5-15.5) % Plt Count 196 (150-450) k/uL MPV 7.2 Neutrophils % 89 % Lymphocytes % 8 % Monocytes % 3 % Eosinophils % 0 % Basophils % 0 % Neutrophils # 10.0 H (1.3-7.7) k/uL Lymphocytes # 0.9 L (1.0-4.8) k/uL Monocytes # 0.3 (0-1.0) k/uL Eosinophils # 0.0 (0-0.7) k/uL Basophils # 0.0 (0-0.2) k/uL PT 10.6 (10.0-12.5) sec INR 1.0 (<1.2) APTT 22.6 (22.0-30.0) sec Sodium 138 (137-145) mmol/L Potassium 4.1 (3.5-5.1) mmol/L Chloride 109 H (98-107) mmol/L Carbon Dioxide 20 L (22-30) mmol/L Anion Gap 9 mmol/L BUN 20 (9-20) mg/dL Creatinine 0.67 (0.66-1.25) mg/dL Est GFR (CKD-EPI)AfAm >90 (>60 ml/min/1.73 sqM) Est GFR (CKD-EPI)NonAf >90 (>60 ml/min/1.73 sqM) Glucose 154 H (74-99) mg/dL Calcium 9.3 (8.4-10.2) mg/dL Magnesium 1.8 (1.6-2.3) mg/dL Total Bilirubin 0.7 (0.2-1.3) mg/dL AST 17 (17-59) U/L ALT 15 (4-49) U/L Alkaline Phosphatase 96 (38-126) U/L Troponin I (0.000-0.034) ng/mL NT-Pro-B Natriuret Pep 136 pg/mL Total Protein 6.4 (6.3-8.2) g/dL Albumin 4.2 (3.5-5.0) g/dL Lipase 87 (23-300) U/L 12/26/23 Range/Units 11:53 WBC (3.8-10.6) k/uL RBC (4.30-5.90) m/uL Hgb (13.0-17.5) gm/dL Hct (39.0-53.0) % MCV (80.0-100.0) fL MCH (25.0-35.0) pg MCHC (31.0-37.0) g/dL RDW (11.5-15.5) % Plt Count (150-450) k/uL MPV Neutrophils % % Lymphocytes % % Monocytes % % Eosinophils % % Basophils % % Neutrophils # (1.3-7.7) k/uL Lymphocytes # (1.0-4.8) k/uL Monocytes # (0-1.0) k/uL Eosinophils # (0-0.7) k/uL Basophils # (0-0.2) k/uL PT (10.0-12.5) sec INR (<1.2) APTT (22.0-30.0) sec Sodium (137-145) mmol/L Potassium (3.5-5.1) mmol/L Chloride (98-107) mmol/L Carbon Dioxide (22-30) mmol/L Anion Gap mmol/L BUN (9-20) mg/dL Creatinine (0.66-1.25) mg/dL Est GFR (CKD-EPI)AfAm (>60 ml/min/1.73 sqM) Est GFR (CKD-EPI)NonAf (>60 ml/min/1.73 sqM) Glucose (74-99) mg/dL Calcium (8.4-10.2) mg/dL Magnesium (1.6-2.3) mg/dL Total Bilirubin (0.2-1.3) mg/dL AST (17-59) U/L ALT (4-49) U/L Alkaline Phosphatase (38-126) U/L Troponin I <0.012 (0.000-0.034) ng/mL NT-Pro-B Natriuret Pep pg/mL Total Protein (6.3-8.2) g/dL Albumin (3.5-5.0) g/dL Lipase (23-300) U/L - EKG Data -: EKG Interpreted by Me EKG Comments: 12-lead Electrocardiogram Interpretation Note EKG was reviewed and interpreted by myself. 12-lead ECG performed at 1138 is interpreted by me as revealing sinus bradycardia at a rate of 51 beats per minute. [place] is normal. IA interval is 155 ms, QRS durations 92 ms, QTc is 405 ms.. There were no ST or T wave abnormalities to suggest myocardial ischemia or injury. R wave progression across the precordium was delayed. By my interpretation this EKG is non-diagnostic for acute ischemia. 12-lead Electrocardiogram Interpretation Note EKG was reviewed and interpreted by myself. 12-lead ECG performed at 1205 is interpreted by me as revealing sinus bradycardia at a rate of 51 beats per minute. [place] is normal. IA interval is 164 ms, QRS duration is 86 ms, QTc is 409 ms.. There were no ST or T wave abnormalities to suggest myocardial ischemia or injury. R wave progression across the precordium was satisfactory. By my interpretation this EKG is non-diagnostic for acute ischemia. Disposition Clinical Impression: Chest pain, Nausea and vomiting Disposition: ADMITTED IP TO THIS HOSP Condition: Stable Time of Disposition: 13:55
--- NOTE | 2023-12-26 14:19 | P.CRDCN ---
History of Present Illness Consult date: 12/26/23 History of present illness: History of Present Illness: The patient is a 57-year-old male with no prior documented history of CAD who presented with chest discomfort. The discomfort woke him up from sleep, predominantly epigastric, associated with nausea and diaphoresis. In the emergency room he was in sinus mechanism, his EKG showed no acute changes and he had no troponin abnormalities on his first set. He was in the hospital in October 2022 and at that time had chest discomfort and subsequently a stress test where he exercised for 12-1/2 minutes, had no chest discomfort and no EKG changes. His echocardiogram showed a preserved systolic function. He is active physically without associated symptoms, he denies any exertional chest pain or dyspnea. He denies any dizziness, palpitations or syncope. He has no peripheral edema, PND or orthopnea. He smokes marijuana daily. He does not consume any alcohol. He consumed spicy food and pizza yesterday. Medications: Zinc and vitamin C Review of Systems: Respiratory: No history of asthma, bronchitis or recent cough. GI: No nausea or vomiting . No history of peptic ulcer disease. No recent GI bleed. : No hematuria or dysuria. Nervous System: No stroke or seizure. Physical Examination: 57-year-old male, alert oriented no apparent distress,Blood pressure 151/80, Heart rate 48 Head: Normocephalic. Eyes: Sclerae nonicteric. Neck: Good carotid upstroke, no bruit, no jugular venous distention. Lungs: Clear to auscultation. Heart: Regular rate and rhythm, S1-S2, no S3, no rub. No murmur. Abdomen: Soft, epigastric tenderness, reproducing the pain, positive bowel sounds no organomegaly. Extremities: No edema, intact distal pulses. Labs: Troponin less than 0.012, hemoglobin 15.3, BUN 20, creatinine 0.67. NT proBNP 136. Chest x-ray with no acute infiltrate, CT scan of the chest shows no evidence of dissection with nodules in the lung EKG: Sinus mechanism with no acute ST segment changes Impression: 1. Epigastric discomfort, no evidence to suggest cardiac etiology, rule out gastritis 2. Marijuana use Plan: 1. We will obtain a second troponin and if there is no abnormalities then no fu rther cardiac workup will be needed 2. Thank you for this consult we will follow with you Past Medical History Past Medical History: No Reported History History of Any Multi-Drug Resistant Organisms: None Reported Past Surgical History: No Surgical Hx Reported Past Anesthesia/Blood Transfusion Reactions: No Reported Reaction Past Psychological History: No Psychological Hx Reported Smoking Status: Current every day smoker Past Alcohol Use History: Occasional Past Drug Use History: Marijuana Medications and Allergies Home Medications Medication Instructions Recorded Confirmed Type Ascorbic Acid [Vitamin C] 500 mg PO DAILY 11/25/22 12/26/23 History Zinc Gluconate [Zinc] 50 mg PO DAILY 11/25/22 12/26/23 History Pantoprazole Sodium [Protonix] 40 mg PO DAILY #30 tab 11/26/22 12/26/23 Rx Allergies Allergy/AdvReac Type Severity Reaction Status Date / Time Penicillins Allergy Rash/Hives, Verified 12/26/23 11:59 nausea/vomiting Physical Exam Vitals: Vital Signs Temp Pulse Resp BP Pulse Ox 12/26/23 13:37 44 L 14 151/87 97 12/26/23 12:01 48 L 16 129/86 99 12/26/23 11:56 50 L 20 131/91 99 12/26/23 11:50 49 L 20 156/90 99 12/26/23 11:33 97.6 F 47 L 16 167/81 99 Intake and Output 12/25/23 12/26/23 12/26/23 22:59 06:59 14:59 Other: Weight 81.647 kg Results 12/26/23 11:53 12/26/23 11:53 Cardiac Enzymes 12/26/23 12/26/23 Range/Units 11:53 11:53 AST 17 (17-59) U/L Troponin I <0.012 (0.000-0.034) ng/mL Coagulation 12/26/23 Range/Units 11:53 PT 10.6 (10.0-12.5) sec APTT 22.6 (22.0-30.0) sec CBC 12/26/23 Range/Units 11:53 WBC 11.3 H (3.8-10.6) k/uL RBC 4.86 (4.30-5.90) m/uL Hgb 15.3 (13.0-17.5) gm/dL Hct 45.8 (39.0-53.0) % Plt Count 196 (150-450) k/uL Comprehensive Metabolic Panel 12/26/23 Range/Units 11:53 Sodium 138 (137-145) mmol/L Potassium 4.1 (3.5-5.1) mmol/L Chloride 109 H (98-107) mmol/L Carbon Dioxide 20 L (22-30) mmol/L BUN 20 (9-20) mg/dL Creatinine 0.67 (0.66-1.25) mg/dL Glucose 154 H (74-99) mg/dL Calcium 9.3 (8.4-10.2) mg/dL AST 17 (17-59) U/L ALT 15 (4-49) U/L Alkaline Phosphatase 96 (38-126) U/L Total Protein 6.4 (6.3-8.2) g/dL Albumin 4.2 (3.5-5.0) g/dL Current Medications Generic Name Dose Route Start Last Admin Trade Name Freq PRN Reason Stop Dose Admin Heparin Sodium (Porcine) 5,000 unit 12/26/23 16:00 Heparin Sodium,Porcine 5,000 Unit/Ml 1 Ml Vial SQ Q8HR RODNEY Sodium Chloride 1,000 mls @ 130 mls/hr 12/26/23 13:16 12/26/23 13:22 Saline 0.9% IV 12/26/23 20:57 130 mls/hr .[id number] STA Administration Sodium Chloride 1,000 mls @ 75 mls/hr 12/26/23 14:00 Saline 0.9% IV .[id number] RODNEY Morphine Sulfate 4 mg 12/26/23 13:55 Morphine Sulfate 4 Mg/Ml Syringe IV Q4HR PRN Severe Pain (Scale 7 to 10) Naloxone HCl 0.2 mg 12/26/23 13:55 Naloxone 0.4 Mg/Ml 1 Ml Vial IV Q2M PRN Opioid Reversal Ondansetron HCl 4 mg 12/26/23 13:55 Ondansetron 4 Mg/2 Ml Vial IVP Q8HR PRN Nausea And Vomiting Pantoprazole Sodium 40 mg 12/27/23 09:00 Pantoprazole 40 Mg/10 Ml Vial IV DAILY RODNEY Intake and Output 12/25/23 12/26/23 12/26/23 22:59 06:59 14:59 Other: Weight 81.647 kg Patient Weight 12/27/23 06:59 Weight 81.647 kg 12/26/23 11:53 12/26/23 11:53
--- NOTE | 2023-12-26 15:00 | P.HPIM ---
History of Present Illness This is a pleasant 57 years old male who presents because of chest pain. His PCP is Dr. Lyons Patient states that he woke up this morning with chest pain about 8/10 in severity in the lower middle chest radiating to the back He states the pain is sharp with no precipitating or relieving factors associated with couple times of loose stool and nausea but no vomiting. Patient unable to eat since morning He denies shortness of breath or significant coughing but feels little lightheaded No urinary complaint, no weakness or numbness He denies smoking alcohol or, uses marijuana at times However, on exam it looks patient has the pain and tenderness in the epigastric rather than in the lower chest. Patient states that 10 months ago he had similar episode, at that time he follow-up with Dr. Marte supervisor line department who treated him with antiacids. He states this time is similar to that attack Patient is hemodynamically stable and afebrile He has unremarkable CBC, BMP, liver enzymes, INR, troponin x 1 EKG showing sinus bradycardia at [address]-T changes Thoracic CAT scan is negative of thoracic and abdominal aorta findings but showing bilateral miliary lung nodules per radiologist Patient already evaluated by mechanical laboratory technician who felt that his pain is noncardiac but related to his epigastric tenderness as well Review of Systems Review of systems CONSTITUTIONAL: No fever, no malaise, no fatigue. HEENT: No recent visual problems or hearing problems. Denied any sore throat. CARDIOVASCULAR: No orthopnea, PND, no palpitations, no syncope. PULMONARY: No shortness of breath, no cough, no hemoptysis. GASTROINTESTINAL: No diarrhea, no nausea, no vomiting, no abdominal pain. Normoactive bowel sounds. NEUROLOGICAL: No headaches, no weakness, no numbness. HEMATOLOGICAL: Denies any bleeding or petechiae. GENITOURINARY: Denies any burning micturition, frequency, or urgency. MUSCULOSKELETAL/RHEUMATOLOGICAL: Denies any joint pain, swelling, or any muscle pain. ENDOCRINE: Denies any polyuria or polydipsia. Past Medical History Past Medical History: No Reported History History of Any Multi-Drug Resistant Organisms: None Reported Past Surgical History: No Surgical Hx Reported Past Anesthesia/Blood Transfusion Reactions: No Reported Reaction Past Psychological History: No Psychological Hx Reported Smoking Status: Current every day smoker Past Alcohol Use History: Occasional Past Drug Use History: Marijuana Medications and Allergies Home Medications Medication Instructions Recorded Confirmed Type RX: Ascorbic Acid [Vitamin C] 500 mg PO DAILY 11/25/22 12/26/23 History RX: Zinc Gluconate [Zinc] 50 mg PO DAILY 11/25/22 12/26/23 History Pantoprazole Sodium [Protonix] 40 mg PO DAILY #30 tab 11/26/22 12/26/23 Rx Allergies Allergy/AdvReac Type Severity Reaction Status Date / Time Penicillins Allergy Rash/Hives, Verified 12/26/23 11:59 nausea/vomiting Physical Exam Vitals: Vital Signs Temp Pulse Resp BP Pulse Ox 12/26/23 13:37 44 L 14 151/87 97 12/26/23 12:01 48 L 16 129/86 99 12/26/23 11:56 50 L 20 131/91 99 12/26/23 11:50 49 L 20 156/90 99 12/26/23 11:33 97.6 F 47 L 16 167/81 99 Intake and Output 12/25/23 12/26/23 12/26/23 22:59 06:59 14:59 Other: Weight 81.647 kg GENERAL: The patient is alert and oriented x3, not in any acute distress. Well developed, well nourished. HEENT: Pupils are round and equally reacting to light. EOMI. No scleral icterus. No conjunctival pallor. Normocephalic, atraumatic. No pharyngeal erythema. No thyromegaly. CARDIOVASCULAR: S1 and S2 present. No murmurs, rubs, or gallops. PULMONARY: Chest is clear to auscultation, no wheezing , no crackles. ABDOMEN: Soft, nontender, nondistended, normoactive bowel sounds. No palpable organomegaly. MUSCULOSKELETAL: No joint swelling or deformity. EXTREMITIES: No cyanosis, clubbing, or pedal edema. NEUROLOGICAL: Gross neurological examination did not reveal any focal deficits. SKIN: No rashes. no petechiae. Results CBC & Chem 7: 12/26/23 11:53 12/26/23 11:53 Labs: Abnormal Lab Results - Last 24 Hours (Table) 12/26/23 12/26/23 Range/Units 11:53 11:53 WBC 11.3 H (3.8-10.6) k/uL Neutrophils # 10.0 H (1.3-7.7) k/uL Lymphocytes # 0.9 L (1.0-4.8) k/uL Chloride 109 H (98-107) mmol/L Carbon Dioxide 20 L (22-30) mmol/L Glucose 154 H (74-99) mg/dL Assessment and Plan Assessment: Patient presents with chest pain but on exam he has epigastric pain and tender ness rather than his chest Sinus bradycardia Substance abuse with marijuana Plan: Follow-up gallbladder ultrasound Real Estate Administrative Assistant already evaluated the patient and recommended second troponin and if negative no further cardiac workup Continue with the Protonix Consider GI consult if no improvement. There is no GI service in this facility this weekend Labs and medication were reviewed.. Continue same treatment. Continue with symptomatic treatment. Resume home medication. Monitor labs and vitals. DVT and GI prophylaxis. Further recommendations as per clinical course of the patient DVT prophylaxis: Subcutaneous heparin GI Prophylaxis: Pepcid PT/OT: Pending Prognosis is guarded
[2023-12-26] MEDS: ASPIRIN 81 MG PO STA (15:25)
[2023-12-26] MEDS: HEPARIN SODIUM,PORCINE 5,000 UNIT/ML 1 ML VIAL SQ SCH (15:25)
--- NOTE | 2023-12-26 15:36 | US ---
EXAMINATION TYPE: US gallbladder DATE OF EXAM: 12/26/2023 COMPARISON: CT, US GB 11/25/22 CLINICAL INDICATION: Male, 57 years old with history of epigastric pain; TECHNIQUE: Multiple sonographic images of the right upper quadrant are obtained. FINDINGS: EXAM MEASUREMENTS: Liver Length: 17.0 cm Gallbladder Wall: 2.5 cm CBD: 0.3 cm Right Kidney: 9.8 x 4.9 x 3.8 cm EXERCISER HORSE NOTES:Intercostal imaging due to body habitus and overlying bowel gas Pancreas: Tail obscured by overlying bowel gas; pancreatic duct measures 0.3 Liver: wnl Gallbladder: wnl Evidence for sonographic Payan's sign: No CBD: wnl Right Kidney: wnl IMPRESSION: Unremarkable gallbladder and biliary tree. [facility], , 12/26/2023 3:33 PM
[2023-12-26] MEDS: FAMOTIDINE 20 MG TAB PO STA (15:52)
[2023-12-26] MEDS: MAG HYDROX/AL HYDROX/SIMETH 30 ML, HYOSCYAMINE ELIXIR 10 ML, LIDOCAINE VISCOUS 2% 10 ML PO ONE (15:53)
[2023-12-26] MEDS: HYDROmorphone 0.5 MG/0.5 ML SYRINGE IVP STA (15:55)
[2023-12-26 17:32] VITALS: RESP 16
[2023-12-26] MEDS: SODIUM CHLORIDE 0.9% 1,000 ML IV SCH (17:36)
[2023-12-26] MEDS: ONDANSETRON 4 MG/2 ML VIAL IVP PRN (21:28)
[2023-12-26] MEDS: PANTOPRAZOLE 40 MG/10 ML VIAL IVP SCH (22:34)
[2023-12-27] MEDS ORDERED: PANTOPRAZOLE 40 MG TABLET PO SCH (07:30)
[2023-12-27 08:01] VITALS: BP 145/80; PULSE 51; TEMP 98.5
[2023-12-27] MEDS ORDERED: PANTOPRAZOLE 40 MG/10 ML VIAL IV SCH (09:00)
[2023-12-27 09:06] LABS: Blood Urea Nitrogen 16.2 mg/dL (9.0-27.0); Carbon Dioxide 20.3 mmol/L (21.6-31.8); Chloride 106 mmol/L (96-109); Glucose 141 mg/dL (70-110); Potassium 4.1 mmol/L (3.5-5.5); Sodium 138 mmol/L (135-145)
[2023-12-27 09:07] LABS: ALT 11 U/L (10-49); AST 11 U/L (14-35); Albumin 3.9 g/dL (3.8-4.9); Albumin/Globulin Ratio 2.17 Ratio (1.60-3.17); Alkaline Phosphatase 63 U/L (41-126); Calcium 8.6 mg/dL (8.7-10.3); Globulin 1.8 g/dL (1.6-3.3); Total Bilirubin 0.4 mg/dL (0.3-1.2); Total Protein 5.7 g/dL (6.2-8.2)
[2023-12-27 09:08] LABS: Basophils # (A) 0.01 X 10*3/uL (0.00-0.10); Basophils % (A) 0.1 %; Eosinophils # (A) 0.01 X 10*3/uL (0.04-0.35); Eosinophils % (A) 0.1 %; HCT 41.3 % (39.6-50.0); HGB 14.2 g/dL (13.0-17.0); Lymphocytes # (A) 0.85 X 10*3/uL (0.90-5.00); Lymphocytes % (A) 7.3 %; MCH 31.4 pg (27.0-32.0); MCHC 34.4 g/dL (32.0-37.0); MCV 91.4 FL (80.0-97.0); Mean Platelet Volume 10.1 FL (9.5-12.2); Monocytes # (A) 0.89 X 10*3/uL (0.20-1.00); Monocytes % (A) 7.7 %; NRBC Per 100 WBC 0 X 10*3/uL (0.00-0.01); Neutrophils # (A) 9.78 X 10*3/uL (1.80-7.70); Neutrophils % (A) 84.4 %; Platelet Count 172 X 10*3/uL (140-440); RBC 4.52 X 10*6/uL (4.40-5.60); RDW 12.2 % (11.5-14.5); WBC 11.59 X 10*3/uL (4.50-10.00)
[2023-12-27] MEDS: ASCORBIC ACID 500 MG TAB PO SCH (09:31)
--- NOTE | 2023-12-27 10:26 | P.PN ---
Subjective Progress Note Date: 12/27/23 History of present illness: History of Present Illness: The patient is a 57-year-old male with no prior documented history of CAD who presented with chest discomfort. The discomfort woke him up from sleep, predominantly epigastric, associated with nausea and diaphoresis. In the emergency room he was in sinus mechanism, his EKG showed no acute changes and he had no troponin abnormalities on his first set. He was in the hospital in October 2022 and at that time had chest discomfort and subsequently a stress test where he exercised for 12-1/2 minutes, had no chest discomfort and no EKG changes. His echocardiogram showed a preserved systolic function. He is active physically without associated symptoms, he denies any exertional chest pain or dyspnea. He denies any dizziness, palpitations or syncope. He has no peripheral edema, PND or orthopnea. He smokes marijuana daily. He does not consume any alcohol. He consumed spicy food and pizza yesterday. Medications: Zinc and vitamin C Labs: Troponin less than 0.012, hemoglobin 15.3, BUN 20, creatinine 0.67. NT proBNP 136. Chest x-ray with no acute infiltrate, CT scan of the chest shows no evidence of dissection with nodules in the lung EKG: Sinus mechanism with no acute ST segment changes Review of Systems: Respiratory: No history of asthma, bronchitis or recent cough. GI: No nausea or vomiting . No history of peptic ulcer disease. No recent GI bleed. : No hematuria or dysuria. Nervous System: No stroke or seizure. 12/26 Patient is seen today in follow-up. 3 sets of troponin have been negative. He is complaining of abdominal soreness. No chest pain. Blood pressure 145/80, heart rate 51, pulse ox 96% on room air. WBC 11.5. Creatinine 0.6. proBNP 136. Patient symptoms seem to be all related to epigastric discomfort and has followed with GI in the past for the same. At this time, no plan for any further cardiac workup. Physical Examination: 57-year-old male, alert oriented no apparent distress Head: Normocephalic. Eyes: Sclerae nonicteric. Neck: Good carotid upstroke, no bruit, no jugular venous distention. Lungs: Clear to auscultation. Heart: Regular rate and rhythm, S1-S2, no S3, no rub. No murmur. Abdomen: Soft, epigastric tenderness, reproducing the pain, positive bowel kristina nds no organomegaly. Extremities: No edema, intact distal pulses. Impression: 1. Epigastric discomfort, no evidence to suggest cardiac etiology, rule out gastritis 2. Marijuana use Plan: No further cardiac workup at this time Cardiology will sign off this case and follow on an as-needed basis. Please reconsult for any new concerns. Patient may follow-up in the office with Dr. Castellon in 2 weeks. Nurse practitioner note has been reviewed, I agree with documented findings and plan of care. Patient was seen and examined. Objective - Vital Signs Vital signs: Vital Signs Temp 98.5 F 12/27/23 07:00 Pulse 51 L 12/27/23 07:00 Resp 16 12/27/23 07:00 BP 145/80 12/27/23 07:00 Pulse Ox 96 12/27/23 07:00 FiO2 Intake & Output 12/26/23 12/27/23 12/27/23 18:59 06:59 18:59 Weight 81.647 kg 81.647 kg - Labs CBC & Chem 7: 12/27/23 04:50 12/27/23 04:50 Labs: Abnormal Lab Results - Last 24 Hours (Table) 12/26/23 12/26/23 Range/Units 11:53 11:53 WBC 11.3 H (3.8-10.6) k/uL Neutrophils # 10.0 H (1.3-7.7) k/uL Lymphocytes # 0.9 L (1.0-4.8) k/uL Chloride 109 H (98-107) mmol/L Carbon Dioxide 20 L (22-30) mmol/L Glucose 154 H (74-99) mg/dL
--- NOTE | 2023-12-27 11:59 | P.CNPUL ---
History of Present Illness Consult date: 12/27/23 Requesting physician: Ronaldo Díaz Reason for consult: abnormal CXR/CT Chief complaint: Nausea, vomiting, chest pain History of present illness: This is a very pleasant 57-year-old male patient with no significant past medical history. He does have former tobacco dependence, marijuana use, oc casional alcohol use who presented to the emergency room yesterday with a 1 day history of nausea, vomiting, epigastric pain. He states the day before he was having knee pain and did take 800 mg of Motrin on 2 separate occasions that he normally does not take. He denied any recent travel. No recent sick exposures. No farming or chicken exposure. 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 CT scan of the thoracic and abdomen revealed no evidence of aortic aneurysm. There was noted miliary nodules scattered throughout the lungs bilaterally. No mediastinal or axillary adenopathy. EKG revealed sinus bradycardia with no significant ST or T wave abnormalities. Ultrasound of the gallbladder was unremarkable. Troponins were negative x 3. White count 11.5. Hemoglobin 14.2. Platelets 172. Sodium 138. Potassium 4.1. Bicarb 20. BUN 16. Creatinine 0.6. Glucose 141. He is seen today in consultation on the regular medical floor. He is currently sitting up at the bedside. Awake and alert in no acute distress. He is maintaining good O2 saturations in the 90s on room air. No further episodes of nausea vomiting or chest pain. He is receiving normal saline at 75 mL/h. Zofran as needed. Review of Systems REVIEW OF SYSTEMS: CONSTITUTIONAL: Denies any recent significant weight loss or weight gain. EYES: Denies change in vision. EARS, NOSE, MOUTH, THROAT: Denies headaches, denies sore throat. CARDIOVASCULAR: Positive for chest pain, no palpitations or syncopal episodes. RESPIRATORY: Denies shortness of breath, cough, congestion or hemoptysis. GASTROINTESTINAL: Positive for nausea, vomiting. GENITOURINARY: Denies hematuria, denies infections. MUSKULOSKELETAL: Denies pain, denies swelling. INTEGUMENTARY: Denies rash, denies eczema. NEUROLOGICAL: Denies recent memory loss, no recent seizure activity. PSYCHIATRIC: Denies anxiety, denies depression. HEMATOLOGIC/LYMPHATIC: Denies anemia, denies enlarged lymph nodes. Past Medical History Past Medical History: No Reported History History of Any Multi-Drug Resistant Organisms: None Reported Past Surgical History: No Surgical Hx Reported Past Anesthesia/Blood Transfusion Reactions: No Reported Reaction Past Psychological History: No Psychological Hx Reported Smoking Status: Current every day smoker Past Alcohol Use History: Occasional Past Drug Use History: Marijuana Medications and Allergies Home Medications Medication Instructions Recorded Confirmed Type Ascorbic Acid [Vitamin C] 500 mg PO DAILY 11/25/22 12/26/23 History Zinc Gluconate [Zinc] 50 mg PO DAILY 11/25/22 12/26/23 History Pantoprazole Sodium [Protonix] 40 mg PO DAILY #30 tab 11/26/22 12/26/23 Rx Allergies Allergy/AdvReac Type Severity Reaction Status Date / Time Penicillins Allergy Rash/Hives, Verified 12/26/23 11:59 nausea/vomiting Physical Exam Vitals: Vital Signs Temp Pulse Pulse Resp BP BP Pulse Ox 12/27/23 07:00 98.5 F 51 L 16 145/80 96 12/27/23 02:36 98.4 F 49 L 166/73 97 12/26/23 21:00 98.3 F 44 L 16 146/83 98 12/26/23 20:04 47 L 16 162/89 96 12/26/23 19:13 42 L 16 169/94 95 12/26/23 17:29 50 L 16 139/83 99 12/26/23 16:00 47 L 18 173/90 98 12/26/23 13:37 44 L 14 151/87 97 12/26/23 12:01 48 L 16 129/86 99 12/26/23 11:56 50 L 20 131/91 99 12/26/23 11:50 49 L 20 156/90 99 Intake and Output 12/26/23 12/27/23 12/27/23 22:59 06:59 14:59 Intake Total 118 Balance 118 Intake: Oral 118 Other: Weight 81.647 kg GENERAL EXAM: Alert, pleasant 57-year-old male, on room air, comfortable in no apparent distress. HEAD: Normocephalic. EYES: Normal reaction of pupils, equal size. NOSE: Clear with pink turbinates. THROAT: No erythema or exudates. NECK: No masses, no JVD. CHEST: No chest wall deformity. LUNGS: Equal air entry with no crackles, wheeze, rhonchi or dullness. CVS: S1 and S2 normal with no audible murmur, regular rhythm. ABDOMEN: No hepatosplenomegaly, normal bowel sounds, no guarding or rigidity. SPINE: No scoliosis or deformity SKIN: No rashes CENTRAL NERVOUS SYSTEM: No focal deficits, tone is normal in all 4 extremities. EXTREMITIES: There is no peripheral edema. No clubbing, no cyanosis. Peripheral pulses are intact. Results - Laboratory Findings CBC and BMP: 12/27/23 04:50 12/27/23 04:50 PT/INR, D-dimer PT 10.6 sec (10.0-12.5) 12/26/23 11:53 INR 1.0 (<1.2) 12/26/23 11:53 Abnormal lab findings: Abnormal Labs 12/26/23 12/26/23 12/27/23 11:53 11:53 04:50 WBC 11.3 H 11.59 H Immature Gran # 0.05 H Neutrophils # 10.0 H 9.78 H Lymphocytes # 0.9 L 0.85 L Eosinophils # 0.01 L Chloride 109 H Carbon Dioxide 20 L BUN/Creatinine Ratio Glucose 154 H Calcium AST Total Protein 12/27/23 04:50 WBC Immature Gran # Neutrophils # Lymphocytes # Eosinophils # Chloride Carbon Dioxide 20.3 L BUN/Creatinine Ratio 27.00 H Glucose 141 H Calcium 8.6 L AST 11 L Total Protein 5.7 L - Diagnostic Findings Chest x-ray: image reviewed CT scan - chest: image reviewed Assessment and Plan Assessment: Nausea, vomiting, epigastric pain possibly related to Motrin. Acute coronary syndrome ruled out. Ultrasound of the gallbladder unremarkable Miliary nodules scattered throughout the lung parenchyma. Occupational exposure/pneumoconiosis/silicosis/tuberculosis/sarcoidosis within the differential Former smoker Plan: The patient was seen and evaluated Imaging, labs and medications reviewed Remains stable and on room air Check an LEVI level Check a QuantiFERON TB test Check for histoplasmosis Follow-up CT scan of the chest and 8 months Cleared for discharge from the pulmonary standpoint I have personally seen and examined the patient, performed the documentation and the assessment and plan as written. Number of minutes spent on the visit: 20.
[2024-01-01 18:39] LABS: Histoplasma Abs by Mycelia, CF <1:8 (<1:8)
--- NOTE | 2024-01-17 13:06 | P.DS ---
Providers Date of admission: 12/26/23 13:55 Attending physician: Ronaldo Díaz MD Consults: 12/26/23 13:49 Consult Physician Routine Consulting Provider: [facility] Consult Reason/Comments: chest pain Do you want consulting provider notified?: Yes 12/26/23 22:13 Consult Physician Routine Consulting Provider: Shawn Walker Reason/Comments: milliary lung nodules Do you want consulting provider notified?: Yes Primary care physician: Sofia Lyons Hospital Course: Diagnoses: Patient presents with chest pain but on exam he has epigastric pain and tenderness rather than his chest, thought secondary to Motrin, Sinus bradycardia Miliary nodules scattered throughout the lung parenchyma Substance abuse with marijuana Hospital course: This is a pleasant 57 years old male who presents because of chest pain. His PCP is Dr. Lyons Patient presents initially for concerns of chest pain, and further evaluation her pain was mainly in the epigastric area and nail machine operator sign of the case. Gallbladder was checked was unremarkable. Her symptoms are thought secondary to drugs like Motrin. Patient was treated with Protonix and show interval improvement. Patient tolerates diet well and she ate 100% of her breakfast on the day of discharge. Her symptoms improved. Patient is going to be discharged Also patient evaluated by field installation technician for evidence of pulmonary for Miliary nodules scattered throughout the lung parenchyma. Workup was ordered, patient did not have any pulmonary symptoms. Patient was cleared for discharge by pulmonary to follow-up outpatient repeat CAT scan in 6 to 8 months.. Patient was informed with this recommendation and she is agreeable Patient was cleared for discharge by all consultants Patient denies any other new complaint. Patient will be discharged on Protonix Problems and management plan were discussed with the patient and he verbalized understanding and acceptance Patient was found stable and can be discharged home in guarded prognosis however he needs follow-up as an outpatient. Patient was instructed to follow up with PCP Dr. Lyons within one week and patient agrees Patient was instructed to follow-up with GI Dr. Marte in 2 weeks, with nail machine operator Dr. Newman in 2 weeks and field installation technician Dr. Young in 2 weeks and he agrees Physical exam Gen: patient is a AAOx3, no distress CVS: S1-S2, RRR, no murmur Lungs: B/L CTA, no wheezing Abdomen: soft, no distention, no tenderness, positive bowel sounds Extremity: no leg edema or induration Time spent more than 35 minutes Patient states that he woke up this morning with chest pain Patient Condition at Discharge: Stable Plan - Discharge Summary New Discharge Prescriptions: New Pantoprazole [Protonix] 40 mg PO BID #60 tab Continue Zinc Gluconate [Zinc] 50 mg PO DAILY Ascorbic Acid [Vitamin C] 500 mg PO DAILY Discontinued Pantoprazole Sodium [Protonix] 40 mg PO DAILY #30 tab Discharge Medication List Ascorbic Acid [Vitamin C] 500 mg PO DAILY 11/25/22 [History] Zinc Gluconate [Zinc] 50 mg PO DAILY 11/25/22 [History] Pantoprazole [Protonix] 40 mg PO BID #60 tab 12/27/23 [Rx] Follow up Appointment(s)/Referral(s): Shawn Walker MD [STAFF PHYSICIAN] - 2 Weeks (follow-up on labs sent-out) Kashif Castellon MD [STAFF PHYSICIAN] - 2 Weeks Bridgette Soria MD [STAFF PHYSICIAN] - 2 Weeks (we recommend to be evaluated for possilbe scope/EGD with your doctor) Sofia Lyons DO [Primary Care Provider] - 1-2 days Patient Instructions/Handouts: Chest Pain (DC), Low Fat Diet (DC), Acute Nausea and Vomiting (DC) Activity/Diet/Wound Care/Special Instructions: heart healthy diet activity is restricted till you see your doctor Discharge Disposition: HOME SELF-CARE
== END 2023-12-27 14:19 | disposition home or self-care (01) ==
LOC: EC 11:32 → 6NMEDSUR 13:55
PROVIDERS: ADMIT Internal Medicine; ATTEND Internal Medicine
DX: R10.13 Epigastric pain (principal); R11.2 Nausea with vomiting, unspecified; R91.8 Other nonspecific abnormal finding of lung field; R00.1 Bradycardia, unspecified; F12.10 Cannabis abuse, uncomplicated; F17.200 Nicotine dependence, unspecified, uncomplicated; Z79.899 Other long term (current) drug therapy; Z88.0 Allergy status to penicillin
CPT/HCPCS: 36415; 71045; 71275; 74174; 76705; 80053; 82164; 83690; 83735; 83880; 84484; 85025; 85610; 85730; 86480; 86698; 93005; 96361; 96372; 96374; 96375; 96376; 99285

== ENCOUNTER → 2024-02-09 | Outpatient (CLI) | payer MEDICAID ==
--- NOTE | 2024-02-10 07:05 | MR ---
EXAMINATION TYPE: MR knee LT wo con DATE OF EXAM: 02/09/2024 COMPARISON: Outside left knee x-ray January 20, 2024 HISTORY: Left knee pain, locking, and swelling x 2 mos, S/P running. TECHNIQUE: Multiplanar, multisequence images of the knee is performed without IV contrast. FINDINGS: MEDIAL MENISCUS: A truncated appearance posterior horn with abnormal signal extending to inferior art icular surface. LATERAL MENISCUS: Anterior and posterior horns are intact without tear. CRUCIATE LIGAMENTS: The posterior cruciate ligament is intact and unremarkable. There is increased si gnal and thinning of the anterior cruciate ligament but it remains intact. COLLATERAL LIGAMENTS: The medial collateral ligament and lateral collateral ligament complex are inta ct. Mild fluid signal surrounds medial collateral ligament. EXTENSOR MECHANISM: Visualized quadriceps and patellar tendons are intact. EFFUSION: Moderate sized suprapatellar joint effusion. POPLITEAL CYST: Moderate to large size septated popliteal/tate cyst measuring 7.3 cm long axis sagit margoth image 28. TRICOMPARTMENT SPACES: Mild to moderate tricompartment joint space loss and spurring. CARTILAGE: Cartilaginous loss medial tibiofemoral compartment. BONE MARROW SIGNAL: Subchondral cystic changes central distal femur. OTHER: No additional significant abnormality is appreciated. IMPRESSION: 1. Full-thickness tear posterior horn medial meniscus. 2. Partial tearing of the anterior cruciate ligament. 3. [place] tricompartment degenerative changes are present as detailed above. 4. Moderate-sized joint effusion. 5. Moderate to large sized septated popliteal cyst. 6. Mild MCL sprain injury. [facility], Workstation: [address], 02/10/2024 7:02 AM
== END | disposition home or self-care (01) ==
LOC: RADMRIMAIN 05:52
PROVIDERS: ATTEND Orthopaedic Surgery
DX: S83.242A Other tear of medial meniscus, current injury, left knee, initial encounter (principal); S83.412A Sprain of medial collateral ligament of left knee, initial encounter; M25.462 Effusion, left knee; M17.12 Unilateral primary osteoarthritis, left knee; M71.22 Synovial cyst of popliteal space [Baker], left knee

== ENCOUNTER → 2024-03-11 | Outpatient (CLI) | payer MEDICAID ==
[2024-03-12 07:13] LABS: Blood Urea Nitrogen 20.1 mg/dL (9.0-27.0); Calcium 9.3 mg/dL (8.7-10.3); Carbon Dioxide 26.9 mmol/L (21.6-31.8); Chloride 106 mmol/L (96-109); Glucose 109 mg/dL (70-110); Sodium 141 mmol/L (135-145)
[2024-03-12 07:44] LABS: Basophils # (A) 0.04 X 10*3/uL (0.00-0.10); Basophils % (A) 0.6 %; Eosinophils # (A) 0.43 X 10*3/uL (0.04-0.35); Eosinophils % (A) 6.3 %; HCT 46.9 % (39.6-50.0); HGB 15.8 g/dL (13.0-17.0); Lymphocytes # (A) 1.77 X 10*3/uL (0.90-5.00); Lymphocytes % (A) 25.9 %; MCH 31.4 pg (27.0-32.0); MCHC 33.7 g/dL (32.0-37.0); MCV 93.2 FL (80.0-97.0); Mean Platelet Volume 10.3 FL (9.5-12.2); Monocytes # (A) 0.65 X 10*3/uL (0.20-1.00); Monocytes % (A) 9.5 %; NRBC Per 100 WBC 0 X 10*3/uL (0.00-0.01); Neutrophils # (A) 3.92 X 10*3/uL (1.80-7.70); Neutrophils % (A) 57.3 %; Platelet Count 191 X 10*3/uL (140-440); RBC 5.03 X 10*6/uL (4.40-5.60); RDW 11.9 % (11.5-14.5); WBC 6.84 X 10*3/uL (4.50-10.00)
== END | disposition home or self-care (01) ==
LOC: LABWHC1 11:12
PROVIDERS: ATTEND Orthopaedic Surgery
DX: Z01.818 Encounter for other preprocedural examination (principal); M23.92 Unspecified internal derangement of left knee
CPT/HCPCS: 36415; 80048; 85025

== ENCOUNTER 2024-03-17 07:57 | Day surgery (SDC) | payer MEDICAID ==
--- NOTE | 2024-03-16 08:30 | P.HPOR ---
History of Present Illness H&P Date: 03/16/24 Chief Complaint: Left knee pain The patient is a 58-year-old male who presents with left knee pain for the past year. He had a previous twisting injury while running. He notes daily pain with weightbearing activities. He notes intermittent locking and buckling. He has tried bracing and medications without much relief. Review of Systems Per HPI Past Medical History Past Medical History: No Reported History History of Any Multi-Drug Resistant Organisms: None Reported Past Surgical History: No Surgical Hx Reported Past Anesthesia/Blood Transfusion Reactions: No Reported Reaction Past Psychological History: No Psychological Hx Reported Smoking Status: Current every day smoker Past Alcohol Use History: Occasional Past Drug Use History: Marijuana Medications and Allergies Home Medications Medication Instructions Recorded Confirmed Type Ascorbic Acid [Vitamin C] 500 mg PO DAILY 11/25/22 12/26/23 History Zinc Gluconate [Zinc] 50 mg PO DAILY 11/25/22 12/26/23 History Pantoprazole [Protonix] 40 mg PO BID #60 tab 12/27/23 Rx Allergies Allergy/AdvReac Type Severity Reaction Status Date / Time Penicillins Allergy Rash/Hives, Verified 12/26/23 11:59 nausea/vomiting Physical Examination - Knee left Appearance: effusion Effusion grade: trace Tenderness with palpation: medial Pain: throughout ROM Gait: limping ROM: extension: -5 degrees ROM: flexion: 110 degrees Crepitus with motion: Yes Strength: extension: 5/5 Strength: flexion: 5/5 Meniscal tests: medial meniscal tests: positive, medial joint line pain: positive Results A shunt is a well-developed well-nourished male proximal July 5 foot 7, 185 pounds of mesomorphic habitus. HEENT exam is nonfocal, neck is supple. He has painless passive motion of his left hip. Straight leg raise is negative. On examination of the left knee, he is tender about the medial joint line. Collaterals are stable, Fallon is negative, Annemarie's elicits medial pain. His distal neurovascular exam appears intact in the left lower extremity. - Diagnostic results Knee MRI: image reviewed (MRI of the left knee obtained and reviewed shows evidence of a posterior medial meniscal tear.) Assessment and Plan Assessment: Left knee internal derangement-symptomatic medial meniscal tear Plan: I talked to the patient at length regarding his condition along with treatment options. This point he is quite demented having pain and mechanical symptoms after his previous injury despite attempted conservative measures. After a thorough discussion he opts to proceed with surgery. We'll plan to proceed with arthroscopy left knee with probable partial medial meniscectomy. Risks and benefits were discussed at length in layman's terms. We will likely perform as an outpatient procedure.
[2024-03-16 12:27] VITALS: BMI 29.0
[2024-03-17] MEDS ORDERED: MIDAZOLAM 2 MG/2 ML VIAL IV PRN (08:03)
[2024-03-17] MEDS ORDERED: SCOPOLAMINE 1 MG/72 HR PATCH TRANSDERM ONE (08:03)
[2024-03-17] MEDS: ONDANSETRON 4 MG/2 ML VIAL IVP ONE (08:37)
[2024-03-17] MEDS: LACTATED RINGERS 1,000 ML IV SCH (08:37)
[2024-03-17] MEDS: DEXAMETHASONE SOD PHOSPHATE 4 MG/ML 1 ML VIAL IV ONE (08:37)
[2024-03-17] MEDS: IV FLUID CONTINUATION 1,000 ML IV ONE (08:37)
[2024-03-17] MEDS ORDERED: PROPOFOL 10 MG/ML 20 ML VIAL IV ONE (09:27)
[2024-03-17] MEDS ORDERED: MIDAZOLAM 2 MG/2 ML VIAL ONE (09:27)
[2024-03-17] MEDS ORDERED: LIDOCAINE 1% INJ 10MG/ML (20 ML MDV) ONE (09:27)
[2024-03-17] MEDS ORDERED: KETOROLAC 15 MG/ML 1 ML VIAL ONE (09:27)
[2024-03-17] MEDS ORDERED: LIDOCAINE 4% LTA KIT (4 ML) TOPICAL ONE (09:27)
[2024-03-17] MEDS ORDERED: hydrALAZINE HCL 20 MG/ML 1 ML VIAL ONE (09:27)
[2024-03-17] MEDS ORDERED: fentaNYL (PF) 50 MCG/ML 2 ML AMP ONE (09:27)
[2024-03-17] MEDS ORDERED: HYDROmorphone (PF) 1 MG/ML ONE (09:27)
[2024-03-17] MEDS ORDERED: SUCCINYLCHOLINE CHLORIDE 200 MG/10 ML VIAL IV ONE (09:27)
[2024-03-17] MEDS: EPINEPHrine (PF) 1 ML in SODIUM CHLORIDE 0.9% IRRIGATIO 3,000 ML IRRIGATION ONE (09:31)
--- NOTE | 2024-03-17 10:26 | P.OP ---
Date of Procedure: 03/17/24 Preoperative Diagnosis: Left knee internal derangement Postoperative Diagnosis: Left knee posterior medial meniscal tear/middle one third lateral meniscal tear Procedure(s) Performed: Left knee arthroscopic partial medial meniscectomy/partial lateral meniscectomy Anesthesia: HANANE Surgeon: Emmanuel Munguia Estimated Blood Loss (ml): 10 Pathology: none sent Condition: stable Disposition: PACU Indications for Procedure: The patient is a 58-year-old male who presents with left knee pain and mechanical symptoms after previous twisting injury despite conservative measures. A discussion of the risks and benefits of operative intervention versus continued conservative measures was made with the patient. He opted to proceed with surgery. Operative risks include infection, neurovascular injury, development of blood clots, possible incomplete resolution of symptoms, possible worsening of symptoms and need for subsequent procedures was discussed. Informed consent was obtained. Operative Findings: As below Description of Procedure: The patient was brought to the operating room, and after induction of general anesthesia examined the left knee. Collaterals were stable, Fallon was negative, and posterior drawer was negative. The left lower extremity was prepped and draped in a normal fashion. A superior lateral portal was made through a 3 mm skin incision superior and lateral to the patella. This was used for outflow. A lateral portal was made through a 5 mm vertical skin incision lateral to the patella tendon above the joint line. Diagnostic arthroscopy was performed. On inspection of the medial compartment, a complex tear involving the posterior horn of the medial meniscus in the white-red junction was noted. This was not amenable to repair. This was debrided back to a stable base with straight baskets and a motorized shaver. The remaining medial meniscus was stable and intact. Grade 2-3 chondral changes were noted diffusely in the medial compartment. On inspection of the notch, the anterior cruciate ligament appeared to be intact. On inspection of the lateral compartment, a radial tear involving the middle one third of the lateral meniscus in the white-white junction was noted. This debrided back to stable base with a motorized shaver. On inspection of the patellofemoral articulation, there was some chondral fibrillation however no loose chondral fragments. The gutters were clear debris. The knee was then thoroughly irrigated. The portals were closed with Steri-Strips. A sterile dressing was applied in addition to a compression stocking. The patient was awoken from general anesthesia and transferred to recovery room in good condition. Blood loss was estimated at 10 mL. No complications were incurred.
[2024-03-17 10:34] VITALS: TEMP 97
[2024-03-17] MEDS: HYDROmorphone 0.5 MG/0.5 ML SYRINGE IVP PRN (10:43)
[2024-03-17 11:07] VITALS: RESP 16
[2024-03-17] MEDS: HYDROcodone/APAP 5-325MG 1 EACH TAB PO STA (11:37)
[2024-03-17 11:40] VITALS: BP 135/79; PULSE 63
== END 2024-03-17 12:15 | disposition home or self-care (01) ==
LOC: OR 07:57
PROVIDERS: ATTEND Orthopaedic Surgery
DX: S83.232A Complex tear of medial meniscus, current injury, left knee, initial encounter (principal); S83.282A Other tear of lateral meniscus, current injury, left knee, initial encounter; X50.1XXA Overexertion from prolonged static or awkward postures, initial encounter; Y93.02 Activity, running; K21.9 Gastro-esophageal reflux disease without esophagitis; F12.90 Cannabis use, unspecified, uncomplicated; Z79.899 Other long term (current) drug therapy; Z88.0 Allergy status to penicillin
CPT/HCPCS: 29880; J2250; J0330; J0360; J1100; J0690; J2405; J0171; J2003; J3010; J1171 ×2; J1885; J2704

== ENCOUNTER 2024-06-21 14:44 | Emergency (ER) | payer MEDICAID ==
--- NOTE | 2024-06-21 15:38 | ED ---
Nausea/Vomiting/Diarrhea HPI - General Source: patient, RN notes reviewed Mode of arrival: ambulatory Limitations: no limitations - History of Present Illness MD complaint: nausea, vomiting, abdominal pain <Miriam Snyder - Last Filed: 06/21/24 15:36> - General Source: patient, RN notes reviewed, old records reviewed <Weston Bell - Last Filed: 06/22/24 00:15> - General Chief complaint: Nausea/Vomiting/Diarrhea Stated complaint: abd pain bloating Time Seen by Provider: 06/21/24 15:30 - History of Present Illness Initial comments: Quick Note: This is a 58-year-old male who presents to the emergency department for abdominal pain, nausea, and vomiting. States that it started 3 to 4 days ago. The nausea and vomiting have subsided, however his abdomen is very sore and anytime he eats states that he has pain in his abdomen. He has since not wanted to eat or drink anything. He saw Dr. Soria yesterday and they were going to schedule an outpatient EGD and colonoscopy. However, states that the pain continued into today and he decided to come here for evaluation. (Miriam Snyder) Patient is a 58-year-old male who presents emergency department complaining of abdominal pain, nausea, vomiting, diarrhea. Has been ongoing since Wednesday. No known sick contacts. Feels like he has reduced appetite. Did see Dr. Marte the gastroenterology office yesterday and was started on an acids. He presents today for continued symptoms. Denies any significant abdominal pain at this sissy e but states it is cramping over the epigastrium and periumbilically. Denies any chest pain. No history of surgeries. No significant history otherwise. Presents for further evaluation at this time. No known sick contacts. Originally seen as a quick note. I evaluated patient when was placed in room. (Weston Bell) - Related Data Home Medications Medication Instructions Recorded Confirmed Ascorbic Acid [Vitamin C] 500 mg PO DAILY 11/25/22 03/17/24 Zinc Gluconate [Zinc] 50 mg PO DAILY 11/25/22 03/17/24 Previous Rx's Medication Instructions Recorded Pantoprazole [Protonix] 40 mg PO BID #60 tab 12/27/23 HYDROcodone/APAP 5-325MG [[place] 1 tab PO Q8HR PRN #18 tab 03/17/24 5325] Allergies Allergy/AdvReac Type Severity Reaction Status Date / Time Penicillins Allergy Rash/Hives, Verified 06/21/24 15:15 nausea/vomiting Review of Systems ROS Other: All systems not noted in ROS Statement are negative. <Miriam Snyder - Last Filed: 06/21/24 15:36> ROS Other: All systems not noted in ROS Statement are negative. <Weston Bell - Last Filed: 06/22/24 00:15> ROS Statement: Those systems with pertinent positive or pertinent negative responses have been documented in the HPI. Review of Systems: CONST: Denies fever EYES: Denies blurry vision ENT: Denies nasal congestion C/V: Denies Chest pain RESP: Denies shortness of breath GI: Endorses abdominal pain : Denies dysuria SKIN: Denies rash. MSK: Denies joint pain. NEURO: Denies headache (Weston Bell) Past Medical History Past Medical History: No Reported History History of Any Multi-Drug Resistant Organisms: None Reported Past Surgical History: Orthopedic Surgery Past Anesthesia/Blood Transfusion Reactions: No Reported Reaction Past Psychological History: No Psychological Hx Reported Smoking Status: Former smoker Past Alcohol Use History: Occasional Past Drug Use History: Marijuana <Miriam Snyder - Last Filed: 06/21/24 15:36> General Exam Limitations: no limitations <Miriam Snyder - Last Filed: 06/21/24 15:36> <Weston Bell - Last Filed: 06/22/24 00:15> - General Exam Comments Initial Comments: Visual Physical Exam Vital signs reviewed General: Well-appearing, nontoxic, no acute distress. Head: Normocephalic, atraumatic Eyes: PERRLA, EOMI ENT: Airway patent Chest: Nonlabored breathing Skin: No visual rash, normal skin tone Neuro: Alert and oriented 3 Musculoskeletal: No gross abnormalities (Miriam Snyder) General: Appears in no acute distress. HEAD: Normal with no signs of head trauma. EYES: EOMI ENT: Hearing grossly intact, normal oropharynx. RESPIRATORY: Clear breath sounds bilaterally. No wheezes, rales, or rhonchi. C/V: Regular rate and rhythm. S1 and S2 auscultated, no edema, peripheral pulses 2+ and intact throughout ABD: Abdomen soft, nondistended. Nontender to palpation in any focal area but some general tenderness over the epigastrium as well as periumbilically. No guarding or rebound tenderness. EXT: no obvious deformity SKIN: No rashes or lesions observed on exposed skin. NEURO: Alert and oriented x 4. (Weston Bell) Course Vital Signs 06/21/24 06/21/24 15:12 19:45 Temperature 97.6 F 98.0 F Pulse Rate 54 L 62 Respiratory 15 16 Rate Blood Pressure 159/94 140/81 O2 Sat by Pulse 97 98 Oximetry Medical Decision Making <Miriam Snyder - Last Filed: 06/21/24 15:36> - Lab Data Result diagrams: 06/21/24 15:53 06/21/24 15:53 - EKG Data -: EKG Interpreted by Me <Weston Bell - Last Filed: 06/22/24 00:15> - Medical Decision Making I performed the QuickNote portion of this chart. Signed Miriam Snyder PA-C. (Miriam Snyder) Was pt. sent in by a medical professional or institution ([facility], STOREPERSON, urgent c are, hospital, or longterm...) When possible be specific @ -No Did you speak to anyone other than the patient for history (EMS, parent, family, police, friend...)? What history was obtained from this source @ -No Did you review nursing and triage notes (agree or disagree)? Why? @ -I reviewed and agree with nursing and triage notes Were old charts reviewed (outside hosp., previous admission, EMS record, old EKG, old radiological studies, urgent care reports/EKG's, longterm records)? Report findings @ -No old charts were reviewed Differential Diagnosis (chest pain, altered mental status, abdominal pain women, abdominal pain men, vaginal bleeding, weakness, fever, dyspnea, syncope, headache, dizziness, GI bleed, back pain, seizure, CVA, palpatations, mental health, musculoskeletal)? @ -Differential Abdominal Pain Men: Appendicitis, cholecystitis, diverticulosis, ischemic bowel, pancreatitis, hepatitis, UTI, gastroenteritis, AAA, incarcerated hernia, bowel obstruction, co nstipation, inflammatory bowel, hepatitis, peptic ulcer disease, splenic infarction, perforated viscus, testicular torsion, this is not meant to be an all-inclusive list EKG interpreted by me (3pts min.). @ -As above X-rays interpreted by me (1pt min.). @ -None done CT interpreted by me (1pt min.). @ -CT abdomen pelvis reveals no obvious acute intra-abdominal process. Patient does have a pulmonary nodule seen on prior imaging. No acute change to it. U/S interpreted by me (1pt. min.). @ -Gallbladder ultrasound negative for any obvious acute process. What testing was considered but not performed or refused? (CT, X-rays, U/S, labs)? Why? @ -None What meds were considered but not given or refused? Why? @ -None Did you discuss the management of the patient with other professionals (pro fessionals i.e. , PA, STOREPERSON, lab, RT, psych nurse, social work lecturer, traveling crane operator, teacher, fundraising officer, director of casework department)? Give summary @ -No Was smoking cessation discussed for >3mins.? @ -No Was critical care preformed (if so, how long)? @ -No Were there social determinants of health that impacted care today? How? (Homelessness, low income, unemployed, alcoholism, drug addiction, transportation, low edu. Level, literacy, decrease access to med. care, long-term, rehab)? @ -No Was there de-escalation of care discussed even if they declined (Discuss DNR or withdrawal of care, Hospice)? DNR status @ -No What co-morbidities impacted this encounter? (DM, HTN, Smoking, COPD, CAD, Cancer, CVA, ARF, Chemo, Hep., AIDS, mental health diagnosis, sleep apnea, morbid obesity)? @ -None Was patient admitted / discharged? Hospital course, mention meds given and route, prescriptions, significant lab abnormalities, going to OR and other pertinent info. @ -Patient presents with abdominal pain, nausea, vomiting, diarrhea for multiple days. We will obtain abdominal laboratory studies as well as gallbladder ultrasound. Screening EKG will also be obtained. Vital signs within acceptable limits. Patient will be symptomatically treat with IV fluids, Protonix, Reglan, Toradol, Benadryl. He was in agreement this plan. Gallbladder ultrasound unremarkable. EKG within acceptable limits. Laboratory studies remarkable for leukocytosis of 12 which is likely reactive. Remainder the workup unremarkable. On reevaluation, patient is feeling improved. I did offer CT imaging due to his age of his abdomen pelvis and he did accept. CT abdomen pelvis revealed no obvious acute intra-abdominal process. Does r eveal a chronic known pulmonary nodule that is unchanged from prior imaging. I discussed the results with the patient including the pulmonary nodule. He expressed understanding. He is feeling improved. He will be discharged home at this time. Diagnosis is abdominal pain of unknown etiology, with nausea vomiting diarrhea. Possible viral in nature. Recommended hydration, follow-up with PCP and return if any worsening symptoms. Will be given ODT Zofran for home. Patient was in agreement this plan. I instructed the patient to follow up with their PCP in the next 1-3 days. I explained that the patient should return to the emergency department if they experience any worsening symptoms. Strict return precautions were discussed with the patient. The patient expressed understanding of these instructions. I answered all questions that the patient had. The patient was discharged home in good condition with their prescriptions and follow up information. Undiagnosed new problem with uncertain prognosis? @ -No Drug Therapy requiring intensive monitoring for toxicity (Heparin, Nitro, In sulin, Cardizem)? @ -No Were any procedures done? @ -No Diagnosis/symptom? @ -Abdominal pain of unknown etiology, nausea and vomiting, diarrhea, pulmonary nodule, viral syndrome Acute, or Chronic, or Acute on Chronic? @ -Acute Uncomplicated (without systemic symptoms) or Complicated (systemic symptoms)? @ -Uncomplicated Side effects of treatment? @ -No Exacerbation, Progression, or Severe Exacerbation? @ -No Poses a threat to life or bodily function? How? (Chest pain, [place], [place], pneumonia, PE, COPD, DKA, ARF, appy, cholecystitis, CVA, Diverticulitis, Homicidal, Suicidal, threat to staff... and all critical care pts) @ -Unlikely at this time (Weston Bell) - Lab Data Lab Results 06/21/24 06/21/24 06/21/24 Range/Units 15:53 15:53 15:53 WBC 12.1 H (3.8-10.6) k/uL RBC 5.36 (4.30-5.90) m/uL Hgb 17.0 (13.0-17.5) gm/dL Hct 48.8 (39.0-53.0) % MCV 90.9 (80.0-100.0) fL MCH 31.6 (25.0-35.0) pg MCHC 34.8 (31.0-37.0) g/dL RDW 12.0 (11.5-15.5) % Plt Count 185 (150-450) k/uL MPV 7.5 Neutrophils % 75 % Lymphocytes % 15 % Monocytes % 8 % Eosinophils % 1 % Basophils % 0 % Neutrophils # 9.0 H (1.3-7.7) k/uL Lymphocytes # 1.8 (1.0-4.8) k/uL Monocytes # 0.9 (0-1.0) k/uL Eosinophils # 0.1 (0-0.7) k/uL Basophils # 0.0 (0-0.2) k/uL Sodium 134 L (137-145) mmol/L Potassium 3.7 (3.5-5.1) mmol/L Chloride 99 (98-107) mmol/L Carbon Dioxide 25 (22-30) mmol/L Anion Gap 10 mmol/L BUN 14 (9-20) mg/dL Creatinine 0.64 L (0.66-1.25) mg/dL Est GFR (CKD-EPI)AfAm >90 (>60 ml/min/1.73 sqM) Est GFR (CKD-EPI)NonAf >90 (>60 ml/min/1.73 sqM) Glucose 100 H (74-99) mg/dL Plasma Lactic Acid Cheo (0.7-2.0) mmol/L Calcium 9.5 (8.4-10.2) mg/dL Magnesium 2.1 (1.6-2.3) mg/dL Total Bilirubin 1.3 (0.2-1.3) mg/dL AST 21 (17-59) U/L ALT 25 (4-49) U/L Alkaline Phosphatase 66 (38-126) U/L Total Protein 7.0 (6.3-8.2) g/dL Albumin 4.5 (3.5-5.0) g/dL Amylase 65 (30-110) U/L Lipase 152 (23-300) U/L Urine Color Light Yellow Urine Appearance Clear (Clear) Urine pH 6.0 (5.0-8.0) Ur Specific [place] 1.015 (1.001-1.035) Urine Protein Negative (Negative) Urine Glucose (UA) Negative (Negative) Urine Ketones Trace H (Negative) Urine Blood Negative (Negative) Urine Nitrite Negative (Negative) Urine Bilirubin Negative (Negative) Urine Urobilinogen <2.0 (<2.0) mg/dL Ur Leukocyte Esterase Negative (Negative) Influenza Type A (PCR) (Not Detectd) Influenza Type B (PCR) (Not Detectd) RSV (PCR) (Not Detectd) SARS-CoV-2 (PCR) (Not Detectd) 06/21/24 06/21/24 Range/Units 15:53 15:53 WBC (3.8-10.6) k/uL RBC (4.30-5.90) m/uL Hgb (13.0-17.5) gm/dL Hct (39.0-53.0) % MCV (80.0-100.0) fL MCH (25.0-35.0) pg MCHC (31.0-37.0) g/dL RDW (11.5-15.5) % Plt Count (150-450) k/uL MPV Neutrophils % % Lymphocytes % % Monocytes % % Eosinophils % % Basophils % % Neutrophils # (1.3-7.7) k/uL Lymphocytes # (1.0-4.8) k/uL Monocytes # (0-1.0) k/uL Eosinophils # (0-0.7) k/uL Basophils # (0-0.2) k/uL Sodium (137-145) mmol/L Potassium (3.5-5.1) mmol/L Chloride (98-107) mmol/L Carbon Dioxide (22-30) mmol/L Anion Gap mmol/L BUN (9-20) mg/dL Creatinine (0.66-1.25) mg/dL Est GFR (CKD-EPI)AfAm (>60 ml/min/1.73 sqM) Est GFR (CKD-EPI)NonAf (>60 ml/min/1.73 sqM) Glucose (74-99) mg/dL Plasma Lactic Acid Cheo 1.2 (0.7-2.0) mmol/L Calcium (8.4-10.2) mg/dL Magnesium (1.6-2.3) mg/dL Total Bilirubin (0.2-1.3) mg/dL AST (17-59) U/L ALT (4-49) U/L Alkaline Phosphatase (38-126) U/L Total Protein (6.3-8.2) g/dL Albumin (3.5-5.0) g/dL Amylase (30-110) U/L Lipase (23-300) U/L Urine Color Urine Appearance (Clear) Urine pH (5.0-8.0) Ur Specific [place] (1.001-1.035) Urine Protein (Negative) Urine Glucose (UA) (Negative) Urine Ketones (Negative) Urine Blood (Negative) Urine Nitrite (Negative) Urine Bilirubin (Negative) Urine Urobilinogen (<2.0) mg/dL Ur Leukocyte Esterase (Negative) Influenza Type A (PCR) Not Detected (Not Detectd) Influenza Type B (PCR) Not Detected (Not Detectd) RSV (PCR) Not Detected (Not Detectd) SARS-CoV-2 (PCR) Not Detected (Not Detectd) - EKG Data EKG Comments: 12-lead Electrocardiogram Interpretation Note EKG was reviewed and interpreted by myself. 12-lead ECG performed at 1613 is interpreted by me as revealing normal sinus rhythm at a rate of 52 beats per minute. [place] is rightward deviated. UT interval is 148 ms, QRS duration is 86 ms, QTc is 392 ms. Nonspecific T wave inversion in lead III.. There were no ST or T wave abnormalities to suggest myocardial ischemia or injury. R wave progression across the precordium was satisfactory. By my interpretation this EKG is non-diagnostic for acute ischemia. (Weston Bell) Disposition <Miriam Snyder - Last Filed: 06/21/24 15:36> Is patient prescribed a controlled substance at d/c from ED?: No Time of Disposition: 19:30 <Weston Bell - Last Filed: 06/22/24 00:15> Clinical Impression: Viral syndrome, Nausea and vomiting, Diarrhea, Pulmonary nodule, Abdominal pain of unknown etiology Disposition: HOME SELF-CARE Condition: Good Instructions (If sedation given, give patient instructions): Acute Nausea and Vomiting (ED), Acute Diarrhea (ED) Additional Instructions: Your pulmonary nodule is stable on CT. Rest of your workup was unremarkable. Likely has some form of viral syndrome. Continue with symptomatic treatment. Return to the ER for any worsening symptoms. Follow-up with PCP in the next 1 to 3 days. Referrals: Sofia Casey DO [Primary Care Provider] - 1-2 days
[2024-06-21 16:22] LABS: Basophils % (A) 0 %; Eosinophils # (A) 0.1 k/uL (0-0.7); Eosinophils % (A) 1 %; HCT 48.8 % (39.0-53.0); Lymphocytes # (A) 1.8 k/uL (1.0-4.8); Lymphocytes % (A) 15 %; MCH 31.6 pg (25.0-35.0); MCHC 34.8 g/dL (31.0-37.0); MCV 90.9 fL (80.0-100.0); Mean Platelet Volume 7.5; Monocytes # (A) 0.9 k/uL (0-1.0); Monocytes % (A) 8 %; Neutrophils % (A) 75 %; Platelet Count 185 k/uL (150-450); RBC 5.36 m/uL (4.30-5.90); WBC 12.1 k/uL (3.8-10.6)
[2024-06-21 16:25] LABS: Appearance,Urine Clear (Clear); Bilirubin,Urine Negative (Negative); Blood,Urine Negative (Negative); Color,Urine Light Yellow; Glucose,Urine (UA) Negative (Negative); Ketones,Urine Trace (Negative); Leukocyte Esterase,Urine Negative (Negative); Nitrite,Urine Negative (Negative); Protein,Urine Negative (Negative); Specific Gravity,Urine 1.015 (1.001-1.035); Urobilinogen,Urine <2.0 mg/dL (<2.0)
[2024-06-21] MEDS: SODIUM CHLORIDE 0.9% 1,000 ML IV ONE (16:34)
[2024-06-21] MEDS: KETOROLAC 15 MG/ML 1 ML VIAL IVP STA (16:36)
[2024-06-21] MEDS: diphenhydrAMINE 50 MG/ML 1 ML VIAL IVP STA (16:37)
[2024-06-21] MEDS: PANTOPRAZOLE 40 MG/10 ML VIAL IVP STA (16:38)
[2024-06-21] MEDS: METOCLOPRAMIDE 5 MG/ML 2 ML VIAL IVP STA (16:39)
[2024-06-21 16:44] LABS: ALT 25 U/L (4-49); AST 21 U/L (17-59); African American GFR (CKD) >90 (>60 ml/min/1.73 sqM); Albumin 4.5 g/dL (3.5-5.0); Alkaline Phosphatase 66 U/L (38-126); Amylase 65 U/L (30-110); Anion Gap 10 mmol/L; Blood Urea Nitrogen 14 mg/dL (9-20); Calcium 9.5 mg/dL (8.4-10.2); Carbon Dioxide 25 mmol/L (22-30); Chloride 99 mmol/L (98-107); Glucose 100 mg/dL (74-99); Lipase 152 U/L (23-300); Magnesium 2.1 mg/dL (1.6-2.3); Non-African American GFR(CKD) >90 (>60 ml/min/1.73 sqM); Potassium 3.7 mmol/L (3.5-5.1); Sodium 134 mmol/L (137-145); Total Bilirubin 1.3 mg/dL (0.2-1.3)
[2024-06-21 17:01] LABS: Influenza A Not Detected (Not Detectd); Influenza B Not Detected (Not Detectd); RSV Not Detected (Not Detectd)
--- NOTE | 2024-06-21 17:23 | US ---
EXAMINATION TYPE: US gallbladder DATE OF EXAM: 06/21/2024 COMPARISON: Prior gallbladder ultrasound December 26, 2023 CLINICAL INDICATION: Male, 58 years old with history of abd pain, nausea/vomit; Pain nausea and vomit ing. Exam limited due to bowel gas and barrel chested. TECHNIQUE: Grayscale and color Doppler imaging of the right upper quadrant was performed. FINDINGS: EXAM MEASUREMENTS: Liver Length: 15.7 cm Gallbladder Wall: .2 cm CBD: .4 cm Right Kidney: 9.8 x 5.3 x 4.4 cm APARTMENT MAINTENANCE NOTES: Pancreas: Obscured by bowel gas Liver: Limited due to bowel gas Gallbladder: no stones seen Evidence for sonographic Payan's sign: no CBD: limited due to bowel gas. Right Kidney: No hydronephrosis or masses seen Suboptimal study. IMPRESSION: Suboptimal study but no mobile shadowing gallstones are seen. [facility], , 06/21/2024 5:20 PM
--- NOTE | 2024-06-21 18:52 | CT ---
EXAMINATION TYPE: CT abdomen pelvis w con DATE OF EXAM: 06/21/2024 COMPARISON: Prior CTA December 26, 2023 CLINICAL INDICATION: Male, 58 years old with history of abd pain, n/v/d, Nausea, vomiting, abdominal discomfort, loss of appetite x 3 days., TECHNIQUE: CT scan of the abdomen and pelvis is performed with IV Contrast, patient injected with 100 mL of Isov ue 300., (none if empty) Oral contrast used: without Oral Contrast (none if empty) CT DLP: 997.1 mGycm, Automated exposure control for dose reduction was used. FINDINGS: LUNG BASES: Stable 3 mm peripheral left lower lobe nodule axial image 18. Of elevated right hemidiaph ragm redemonstrated. LIVER/GB: No significant abnormality is appreciated. PANCREAS: No significant abnormality is seen. SPLEEN: No significant abnormality is seen. ADRENALS: No significant abnormality is seen. KIDNEYS: No significant abnormality is seen. BOWEL: No abnormal small or large bowel dilatation. PROSTATE/SEMINAL VESICLES: Enlarged prostate consistent with BPH is redemonstrated. LYMPH NODES: No greater than 1cm abdominal or pelvic lymph nodes are appreciated. OSSEOUS STRUCTURES: Moderate disc space narrowing at L4-L5 level again seen. Other: Small fat-containing umbilical hernia is redemonstrated. IMPRESSION: No bowel obstruction. No significant new/acute finding is seen to account for patient's c linical symptoms. [facility], , 06/21/2024 6:50 PM
[2024-06-21] MEDS: ONDANSETRON 4 MG ODT STARTER PACK 2 TAB BTL PO STA (19:43)
[2024-06-21 19:46] VITALS: BP 140/81; PULSE 62; RESP 16; TEMP 98
== END 2024-06-21 19:47 | disposition home or self-care (01) ==
LOC: EC 14:44
DX: B34.9 Viral infection, unspecified (principal); R91.1 Solitary pulmonary nodule; D72.829 Elevated white blood cell count, unspecified; Z11.52 Encounter for screening for COVID-19; Z87.891 Personal history of nicotine dependence; Z88.0 Allergy status to penicillin
CPT/HCPCS: 36415; 93005; 80053; 82150; 83605; 83690; 83735; 85025; 81003; 87636; 76705; 74177; 99284; 96374; 96375 ×3; 96361 ×2; J1200; J2765; J1885; S0119; Q9967; J2470

== ENCOUNTER 2024-08-02 07:07 | Day surgery (SDC) | payer MEDICAID ==
[2024-08-01 09:51] VITALS: BMI 28.1
[2024-08-02 07:25] VITALS: RESP 16; TEMP 97.1
[2024-08-02] MEDS: LACTATED RINGERS 1,000 ML IV SCH (07:28)
[2024-08-02] MEDS: IV FLUID CONTINUATION 1,000 ML IV ONE ×2 (07:29→08:08)
[2024-08-02] MEDS: LIDOCAINE 1% (10MG/ML) FOR IV START INTRADERMA STA (07:29)
[2024-08-02] MEDS ORDERED: PROPOFOL 10 MG/ML 20 ML VIAL IV ONE (08:09)
[2024-08-02] MEDS ORDERED: LIDOCAINE 1% INJ 10MG/ML (20 ML MDV) ONE (08:09)
--- NOTE | 2024-08-02 08:33 | P.PCN ---
Date of Procedure: 08/02/24 Procedure(s) Performed: Brief history: Patient is a pleasant 58-year-old white male scheduled for an elective upper endoscopy as well as colonoscopy as a part of evaluation of chronic epigastric pain and screening for prior history of colon polyps last colonoscopy was 5 years ago and was noted to have a tubular adenoma. Procedure performed: Esophagogastroduodenoscopy with biopsy Colonoscopy with snare polypectomy. Preoperative diagnosis: Chronic epigastric pain Screening for history of colon polyps Anesthesia: MAC Procedure: After informed consent was obtained from the patient was brought into the endoscopy unit and IV sedation was administered by anesthesia under continuous monitoring. Initially upper endoscopy was done. The Olympus GF 160 video endoscope was inserted inserted into the mouth and esophagus intubated without any difficulty and was gradually advanced into the stomach and duodenum and carefully examined. The bulb had mild duodenitis and second part of the duodenum appeared normal. The scope was then withdrawn into the stomach adequately insufflated with air and upon careful examination the antrum and mild gastritis and biopsies were done from this area. Mucosa body, cardia and fundus appeared normal. The scope was then withdrawn into the esophagus. The GE junction was located at 40 cm to the incisors. Small hiatal hernia noted. It appeared regular with no erythema erosions or ulcerations. Rest of the esophagus appeared normal. Patient tolerated the procedure well. At this time the patient continued to remain sedation. Initial digital rectal examination was normal. Olympus CF 160 video colonoscope was then inserted into the rectum and gradually advanced to the cecum without any difficulty. Careful examination was performed as the scope was gradually being withdrawn. The prep was excellent. The cecum, normal. The ascending colon there was a 5 mm polyp removed by cold snare polypectomy. In the transverse colon there was another 5 mm polyp removed by cold snare polypectomy. Rest of the ascending colon, transverse colon, descending colon, appeared normal. In the sigmoid colon there was a 1 cm pedunculated polyp removed by snare polypectomy. Scattered sigmoid diverticulosis seen. Rest of the sigmoid colon and rectum appeared normal. Retroflexion was performed in the rectum and no lesions were noted. Patient tolerated the procedure well. Impression: 1. Upper endoscopy revealed bilateral gastritis, duodenitis and small hiatal hernia 2. Colonoscopy revealed: 5 mm ascending colon polyp status post cold snare polypectomy 5 mm transverse colon polyp status post cold snare polypectomy 1 cm pedunculated sigmoid colon polyp status post snare polypectomy Scattered sigmoid diverticulosis Recommendations: Findings of this examination were discussed with the patient as well as his family. He was advised to follow the biopsy results. Continue with Protonix 40 mg daily and follow antireflux measures. If the biopsy reveals adenoma he can have repeat colonoscopy in 3 years.
[2024-08-02 08:43] VITALS: BP 121/82; PULSE 70
== END 2024-08-02 09:17 | disposition home or self-care (01) ==
LOC: ORWHC2ENDO 07:07
PROVIDERS: ATTEND Internal Medicine Gastroenterology
DX: Z12.11 Encounter for screening for malignant neoplasm of colon (principal); D12.2 Benign neoplasm of ascending colon; D12.3 Benign neoplasm of transverse colon; D12.5 Benign neoplasm of sigmoid colon; K57.30 Diverticulosis of large intestine without perforation or abscess without bleeding; K29.80 Duodenitis without bleeding; K29.50 Unspecified chronic gastritis without bleeding; K21.9 Gastro-esophageal reflux disease without esophagitis; K44.9 Diaphragmatic hernia without obstruction or gangrene; Z79.899 Other long term (current) drug therapy; Z86.0101 Personal history of adenomatous and serrated colon polyps; Z88.0 Allergy status to penicillin
CPT/HCPCS: 88305; 45385; 43239; J2003; J2704